=== PATIENT | female | born 1975 | race Caucasian/White ===

== ENCOUNTER 2016-08-04 08:59 | Inpatient (IN) | payer SELFPAY ==
[~2016-08-04] VITALS: Ht 160 cm; Wt 87.1 kg
--- NOTE | 2016-08-04 09:27 | RAD ---
Portable chest, 08/04/2016: History: Cough, shortness of breath The heart size and pulmonary vascularity are normal. No pulmonary infiltrates are seen. There is no evidence of pleural fluid. IMPRESSION: No acute cardiopulmonary abnormality is detected.
[2016-08-04] MEDS ORDERED: IPRATRPIUM/ALBUTEROL 0.5/2.5MG 3 ML NEBU. NEB ONE ×2 (09:45→14:45)
[2016-08-04] MEDS ORDERED: DEXAMETHASONE SOD PHOS 20 MG/5 ML VIAL. IV ONE (09:45)
[2016-08-04 10:11] LABS: BASO # 0.1 x10^3/uL (0.0-0.2); BASO % 1 % (0-3); EOS % 3 % (0-3); HEMATOCRIT 39.4 % (36.0-47.0); HEMOGLOBIN 13.4 g/dL (12.0-15.5); LYMPH # 2.9 x10^3/uL (1.0-4.8); LYMPH % 23 % (24-48); MEAN CORPUSCULAR HEMOGLOBIN 28 pg (25-35); MEAN CORPUSCULAR HGB CONC 34 g/dL (31-37); MEAN CORPUSCULAR VOLUME 83 fL (79-100); MONO % 5 % (0-9); NEUT % 69 % (31-73); PLATELET COUNT 200 x10^3/uL (140-400); RED BLOOD COUNT 4.75 x10^6/uL (3.50-5.40); RED CELL DISTRIBUTION WIDTH 13.7 % (11.5-14.5)
[2016-08-04 10:14] LABS: CALCIUM 9.2 mg/dL (8.5-10.1); GFR 61.4; POTASSIUM 3.2 mmol/L (3.5-5.1)
[2016-08-04 10:15] LABS: MAGNESIUM 1.5 mg/dL (1.8-2.4)
[2016-08-04 10:21] LABS: INR 1.1 (0.8-1.1); PROTHROMBIN TIME PATIENT 13.4 SEC (11.7-14.0)
[2016-08-04 10:30] LABS: BILIRUBIN,URINE NEGATIVE (NEG); GLUCOSE,URINE 100 mg/dL (NEG); NITRITE,URINE NEGATIVE (NEG); PROTEIN,URINE 30 mg/dL (NEG-TRACE); UROBILINOGEN,URINE 0.2 mg/dL (0.2 mg/dL)
[2016-08-04] MEDS ORDERED: IV NORMAL SALINE 1000ML BAG 1,000 ML IV ONE ×2 (10:30→16:15)
[2016-08-04 10:31] LABS: BACTERIA,URINE FEW /HPF (0-FEW); SQUAMOUS EPITHELIAL CELL,UR FEW /LPF; WBC,URINE 0 /HPF (0-4)
[2016-08-04 10:32] LABS: BARBITURATES NEG (NEG); BENZODIAZEPINES NEG (NEG); CANNABINOIDS NEG (NEG); COCAINE NEG (NEG); METHADONE NEG (NEG); OPIATES POS (NEG); PHENCYCLIDINE NEG (NEG)
[2016-08-04 10:40] LABS: CKMB MASS 0.8 ng/mL (0.0-3.6); CREATINE KINASE 55 U/L (26-192)
[2016-08-04] MEDS ORDERED: NICOTINE 21MG PATCH. TD STA (10:45)
[2016-08-04] MEDS ORDERED: ALPRAZolam 0.5 MG TABLET PO ONE (10:45)
[2016-08-04] MEDS ORDERED: IOHEXOL 300 MG/ML 75 ML VIAL IV ONE (11:30)
--- NOTE | 2016-08-04 12:53 | PHYS DOC ---
Past Medical History Past Medical History: Pneumonia Past Surgical History: Tubal ligation Alcohol Use: None Drug Use: None Adult General Chief Complaint Chief Complaint: SHORTNESS OF BREATH HPI HPI Patient is a 41 year old female with history of smoking who presents today with shortness of breath and coughing that began a week ago. Patient states she was seen at [facility] one week ago. She states she was diagnosed with bilateral lower lobe pneumonia and was treated with azithromycin. Patient states she completed antibiotics. She states she still have shortness of breath. Patient denies any fever. She tried using her inhaler with no relief. Review of Systems Review of Systems Constitutional: See history of present illness Eyes: Denies change in visual acuity, redness, or eye pain [] HENT: Denies nasal congestion or sore throat [] Respiratory: Cough and shortness of breath Cardiovascular: No additional information not addressed in HPI [] GI: Denies abdominal pain, nausea, vomiting, bloody stools or diarrhea [] : Denies dysuria or hematuria [] Musculoskeletal: Denies back pain or joint pain [] Integument: Denies rash or skin lesions [] Neurologic: Denies headache, focal weakness or sensory changes [] Endocrine: Denies polyuria or polydipsia [] Current Medications Current Medications Current Medications Medications (Trade) Dose Ordered Sig/Annabel Start Time Stop Time Status Last Admin Dose Admin Albuterol/ Ipratropium (Duoneb) 3 ml 1X ONCE 08/04/16 09:45 08/04/16 09:46 DC 08/04/16 09:40 3 ML Alprazolam (Xanax) 0.5 mg 1X ONCE 08/04/16 10:45 08/04/16 10:51 DC 08/04/16 10:55 0.5 MG Dexamethasone Sodium Phosphate 10 mg 10 mg 1X ONCE 08/04/16 09:45 08/04/16 09:46 DC 08/04/16 10:22 10 MG Iohexol 75 ml 75 ml 1X ONCE 08/04/16 11:30 08/04/16 11:31 DC 08/04/16 12:28 75 ML Levofloxacin/ Dextrose (LEVAQUIN 500mg PREMIX) 100 ml @ 100 mls/hr 1X ONCE 08/04/16 13:30 08/04/16 14:29 DC 08/04/16 14:17 100 MLS/HR Nicotine (Nicoderm Cq 21mg) 1 patch 1X STAT 08/04/16 10:45 08/04/16 10:51 DC 08/04/16 12:14 1 PATCH Sodium Chloride (Iv Sodium Chloride 0.9% 1000ml Bag) 1,000 ml @ 1,000 mls/hr 1X ONCE 08/04/16 10:30 08/04/16 11:29 DC 08/04/16 10:42 1,000 MLS/HR Allergies Allergies Allergies Coded Allergies Type Severity Reaction Last Updated Verified Penicillins Allergy Severe anaphylaxis 08/04/16 Yes Physical Exam Physical Exam Constitutional: Well developed, well nourished, no acute distress, non-toxic appearance. [] HENT: Normocephalic, atraumatic, bilateral external ears normal, oropharynx moist, no oral exudates, nose normal. [] Eyes: PERRLA, EOMI, conjunctiva normal, no discharge. [] Neck: Normal range of motion, no tenderness, supple, no stridor. [] Cardiovascular:Heart rate regular rhythm, no murmur [] Lungs & Thorax: Slight wheezing to posterior lung bases. Abdomen: Bowel sounds normal, soft, no tenderness, no masses, no pulsatile masses. [] Skin: Warm, dry, no erythema, no rash. [] Back: No tenderness, no CVA tenderness. [] Extremities: No tenderness, no cyanosis, no clubbing, ROM intact, no edema. [] Neurologic: Alert and oriented X 3, normal motor function, normal sensory function, no focal deficits noted. [] Psychologic: Affect normal, judgement normal, mood normal. [] Current Patient Data Vital Signs Vital Signs Date Time Temp Pulse Resp B/P Pulse Ox O2 Delivery O2 Flow Rate FiO2 08/04/16 09:40 98 Room Air 08/04/16 09:22 98.3 122 20 120/81 98.3 Lab Values Laboratory Tests Test 08/04/16 09:02 08/04/16 09:20 08/04/16 09:45 POC Urine HCG, Qualitative Hcg negative (Negative) Lactic Acid Level 3.1mmol/L (0.4-2.0) H White Blood Count 13.0x10^3/uL (4.0-11.0) H Red Blood Count 4.75x10^6/uL (3.50-5.40) Hemoglobin 13.4g/dL (12.0-15.5) Hematocrit 39.4% (36.0-47.0) Mean Corpuscular Volume 83fL (79-100) Mean Corpuscular Hemoglobin 28pg (25-35) Mean Corpuscular Hemoglobin Concent 34g/dL (31-37) Red Cell Distribution Width 13.7% (11.5-14.5) Platelet Count 200x10^3/uL (140-400) Neutrophils (%) (Auto) 69% (31-73) Lymphocytes (%) (Auto) 23% (24-48) L Monocytes (%) (Auto) 5% (0-9) Eosinophils (%) (Auto) 3% (0-3) Basophils (%) (Auto) 1% (0-3) Neutrophils # (Auto) 9.0x10^3uL (1.8-7.7) H Lymphocytes # (Auto) 2.9x10^3/uL (1.0-4.8) Monocytes # (Auto) 0.6x10^3/uL (0.0-1.1) Eosinophils # (Auto) 0.4x10^3/uL (0.0-0.7) Basophils # (Auto) 0.1x10^3/uL (0.0-0.2) Prothrombin Time 13.4SEC (11.7-14.0) Prothrombin Time INR 1.1 (0.8-1.1) D-Dimer (Shavon) 0.60ug/mlFEU (0.00-0.50) H Urine Collection Type Void Urine Color Yellow Urine Clarity Clear Urine pH 6.0 Urine Specific [place] 1.025 Urine Protein 30mg/dL (NEG-TRACE) Urine Glucose (UA) 100mg/dL (NEG) Urine Ketones (Stick) Negativemg/dL (NEG) Urine Blood Large (NEG) Urine Nitrite Negative (NEG) Urine Bilirubin Negative (NEG) Urine Urobilinogen Dipstick 0.2mg/dL (0.2 mg/dL) Urine Leukocyte Esterase Small (NEG) Urine RBC 1-2/HPF (0-2) Urine WBC 0/HPF (0-4) Urine Squamous Epithelial Cells Few/LPF Urine Bacteria Few/HPF (0-FEW) Urine Mucus Mod/LPF Sodium Level 134mmol/L (136-145) L Potassium Level 3.2mmol/L (3.5-5.1) L Chloride Level 98mmol/L (98-107) Carbon Dioxide Level 26mmol/L (21-32) Anion Gap 10 (6-14) Blood Urea Nitrogen 7mg/dL (7-20) Creatinine 1.0mg/dL (0.6-1.0) Estimated GFR (Cockcroft-Gault) 61.4 Glucose Level 257mg/dL (70-99) H Calcium Level 9.2mg/dL (8.5-10.1) Magnesium Level 1.5mg/dL (1.8-2.4) L Creatine Kinase 55U/L (26-192) Creatine Kinase MB (Mass) 0.8ng/mL (0.0-3.6) Creatine Kinase MB Relative Index % (0-4) Troponin I Quantitative < 0.017ng/mL (0.000-0.055) BC-Jkk-L-Type Natriuretic Peptide 35pg/mL (0-124) Thyroid Stimulating Hormone (TSH) 2.260uIU/mL (0.358-3.74) Urine Opiates Screen Pos (NEG) Urine Methadone Screen Neg (NEG) Urine Barbiturates Neg (NEG) Urine Phencyclidine Screen Neg (NEG) Urine Amphetamine/Methamphetamine Neg (NEG) Urine Benzodiazepines Screen Neg (NEG) Urine Cocaine Screen Neg (NEG) Urine Cannabinoids Screen Neg (NEG) Urine Ethyl Alcohol Neg (NEG) Laboratory Tests 08/04/16 09:45 Laboratory Tests 08/04/16 09:45 EKG EKG [] Radiology/Procedures Radiology/Procedures [] Course & Med Decision Making Course & Med Decision Making Pertinent Labs and Imaging studies reviewed. (See chart for details) Patient is in the ED with shortness of breath for one week. She was treated for pneumonia a week ago with azithromycin. She states her symptoms have not improved. Her chest x-ray is negative for any acute findings. Patient has be tachycardic with heart rates in the 120s, d-dimer was ordered which was 0.60. CT chest was done. CT chest is suspicious for bilateral upper lobe pneumonia. Blood glucose was 257 with no history of diabetes. Potassium was 3.2, lactic acid was 3.1 sodium is 134. She did get 1 L of IV fluid. Blood cultures were obtained. She was started on Levaquin. Dragon Disclaimer Dragon Disclaimer This electronic medical record was generated, in whole or in part, using a voice recognition dictation system. Departure Departure Impression: Primary Impression: CAP (community acquired pneumonia) Additional Impressions: Tachycardia Shortness of breath Hyperglycemia Disposition: ADMITTED INPATIENT Condition: STABLE Referrals: NO PCP (PCP) Problem Qualifiers SEVERO HAYES APRN August 04, 2016 12:52
--- NOTE | 2016-08-04 12:55 | RAD ---
Indication shortness of air. Axial images of the chest were obtained. The examination was tailored for the detection of pulmonary embolus. MIP images were generated and reviewed. 75 cc of Omnipaque 300 was administered intravenously. The study, evaluating for pulmonary embolus is somewhat limited. The image acquisition was" too late" and there is not optimal opacification of the pulmonary arteries. No prior CT imaging of the chest is available. No definite pulmonary emboli are seen and certainly large central pulmonary emboli are not present on this exam. Imaging through the upper abdomen shows no acute finding. There is fatty infiltration of the liver. The thoracic aorta appears unremarkable. Significant hilar or mediastinal adenopathy is not seen. There are perhaps minimal patchy infiltrates in the upper lobes. Clinical correlation as to the likelihood of pneumonia advised. A dominant soft tissue mass in either lung is not seen. IMPRESSION: Limited study evaluating for pulmonary embolus. No large central pulmonary emboli seen. Suggested subtle patchy infiltrates in the upper lobes. Pneumonia not excluded. Clinical correlation advised PQRS Compliance Statement: One or more of the following individualized dose reduction techniques were utilized for this examination: 1. Automated exposure control 2. Adjustment of the mA and/or kV according to patient size 3. Use of iterative reconstruction technique
--- NOTE | 2016-08-04 13:11 | EKG ---
[facility] [address] [place] [address] Test Date: 2016-08-04 Test Time: 09:44:05 Pat Name: LEX BACA Department: Room: Gender: F Senior Underwriter: : 1975 Requested By: SEVERO HAYES Order Number: [id number] Reading MD: Lawanda Higginbotham Measurements Intervals [place] Rate: 121 P: 53 IL: 136 QRS: 38 QRSD: 72 T: 29 QT: 322 QTc: 460 Interpretive Statements SINUS TACHYCARDIA OTHRTWISE NORMAL EKG RI6.01 No previous ECG available for comparison Electronically Signed On 08-04-2016 21:11:51 CDT by Lawanda Higginbotham
--- NOTE | 2016-08-04 14:44 | PDOC ---
Provider Note Provider Note dictated ROBINSON GUTIÉRREZ MD August 04, 2016 14:44
--- NOTE | 2016-08-04 15:25 | CONS ---
DATE OF CONSULTATION: ATTENDING PHYSICIAN: Dr. Salguero. REASON FOR CONSULTATION: Dyspnea, pneumonia. HISTORY OF PRESENT ILLNESS: The patient is a 41-year-old female, who has been a smoker since 20 years. She was seen at [facility] on last Thursday and she states that chest x-ray showed that she had pneumonia. She was given antibiotics. The patient states that she had finished a course of Zithromax. She said she still has some shortness of breath. No chest pains. She has a mild cough. No fever or chills. No nausea, vomiting or diarrhea. Her chest x-ray was clear. She had a CT chest, which was reviewed by me and I did not see any major central pulmonary emboli. There was a very faint if any infiltrates seen in the upper lobe. She is hospitalized for further evaluation. PAST MEDICAL HISTORY: Significant for pneumonia. PAST SURGICAL HISTORY: Tubal ligation. ALLERGIES: PENICILLIN. MEDICATIONS: Given in the ER with Levaquin. REVIEW OF SYSTEMS: As discussed in my history of present illness. SOCIAL HISTORY: Ongoing tobaccoism for 20 years. PHYSICAL EXAMINATION: VITAL SIGNS: Stable, afebrile, pulse ox 98% on room air. NECK: Supple. LUNGS: Clear. CARDIOVASCULAR: Regular rate. ABDOMEN: Soft, obese. EXTREMITIES: With no pitting edema. LABORATORY DATA: Reviewed. White cell count 13.0 and potassium 3.2. IMPRESSION: 1. Dyspnea secondary to mild exacerbation of chronic obstructive pulmonary disease and mild residual pneumonia. Apparently, her chest x-ray at [facility] a week ago had bilateral infiltrates and now radiographically on a chest x-ray we cannot see them. Only very minimal and faint infiltrates seen in the upper lobe. Clinically, 24 hours of hospital stay would be reasonable. 2. Ongoing tobaccoism. RECOMMENDATIONS: 1. Continue with Levaquin. 2. Nebulizer treatments. 3. Hopefully, discharge in the next 24 hours. 4. Smoking cessation counseling provided. 5. will as needed ROBINSON GUTIÉRREZ MD DR: THELMA/miguel JOB#: [id number] / [id number] RAYMUNDO
[2016-08-04] MEDS ORDERED: ACETAMINOPHEN 325 MG TABLET. PO PRN (16:00)
[2016-08-04] MEDS ORDERED: ONDANSETRON PF 4 MG/2 ML VIAL. IV PRN (16:00)
[2016-08-04] MEDS: IPRATRPIUM/ALBUTEROL 0.5/2.5MG 3 ML NEBU. NEB SCH (17:40)
[2016-08-04] MEDS ORDERED: HYDR-2672 PO (18:07)
[2016-08-04] MEDS ORDERED: IBUP-1060 PO (18:07)
--- NOTE | 2016-08-04 18:12 | HP ---
ADMIT DATE: 08/04/2016 CHIEF COMPLAINT: Shortness of breath, cough. HISTORY OF PRESENT ILLNESS: The patient is a pleasant 41-year-old female presents with shortness breath and cough. She has been having symptoms for a few days. It is worse with movement, better with sitting still. She has associated anxiety. Chest x-ray showing pneumonia. She also does smoke too much. I discussed the case with her and her family. I explained that she is going to be admitted for pneumonia. I requested that she please quit smoking. The patient has been admitted to the telemetry floor. PAST MEDICAL HISTORY: Tobacco abuse, previous pneumonia. ALLERGIES: None. FAMILY HISTORY: Hypertension. SOCIAL HISTORY: She smokes. She works at [employer]. She does not drink or take drugs. MEDICATIONS: Reviewed, please refer to the MRAD. REVIEW OF SYSTEMS: GENERAL: No history of weight change, weakness or fevers. SKIN: No bruising, hair changes or rashes. EYES: No blurred, double or loss of vision. NOSE AND THROAT: No history of nosebleeds, hoarseness or sore throat. HEART: No history of palpitations, chest pain or shortness of breath on exertion. LUNGS: She complains of congestion, shortness of breath and cough. GASTROINTESTINAL: Denies changes in appetite, nausea, vomiting, diarrhea or constipation. GENITOURINARY: No history of frequency, urgency, hesitancy or nocturia. NEUROLOGIC: Denies history of numbness, tingling, tremor or weakness. PSYCHIATRIC: No history of panic, anxiety or depression. ENDOCRINE: No history of heat or cold intolerance, polyuria or polydipsia. EXTREMITIES: Denies muscle weakness, joint pain, pain on walking or stiffness. PHYSICAL EXAMINATION: VITAL SIGNS: Temperature afebrile, pulse 68, respirations 18, blood pressure 144/92. GENERAL: She is alert, cooperative. HEART: Normal S1, S2. LUNGS: Right-sided crackles. ABDOMEN: Soft, positive bowel sounds. EXTREMITIES: No edema. SKIN: She does have a malar rash on her face what appears to perhaps be rosacea versus perhaps a lupus, but this has been occurring for several years. ASSESSMENT AND PLAN: Pneumonia. The patient has been admitted. We will start IV antibiotics, breathing treatments, oxygen, consider steroids if Pulmonary agrees, consult Pulmonary. Continue home medicines, PT, OT, frequent labs. NIAL Miryam HOWELL DO DR: EDA/miguel JOB#: [id number] / [id number]
[2016-08-04 19:00] VITALS: BP 110/72
[2016-08-04] MEDS: MORPHINE SULFATE 2 MG/ML DISP.SYRIN. IV PRN (20:16)
[2016-08-04] MEDS ORDERED: PNEUMOC CONJ VACC 23-VALENT 0.5 ML VIAL. VAX IM ONE (21:00)
[2016-08-04 23:00] VITALS: BP 110/72
[2016-08-05 03:00] VITALS: BP 99/69
[2016-08-05] MEDS: MORPHINE SULFATE 2 MG/ML DISP.SYRIN. IV PRN (03:30)
[2016-08-05 05:08] LABS: BASO # 0.1 x10^3/uL (0.0-0.2); BASO % 0 % (0-3); EOS % 0 % (0-3); HEMATOCRIT 36.9 % (36.0-47.0); HEMOGLOBIN 12.1 g/dL (12.0-15.5); LYMPH # 1.6 x10^3/uL (1.0-4.8); LYMPH % 15 % (24-48); MEAN CORPUSCULAR HEMOGLOBIN 28 pg (25-35); MEAN CORPUSCULAR HGB CONC 33 g/dL (31-37); MEAN CORPUSCULAR VOLUME 85 fL (79-100); MONO % 5 % (0-9); NEUT % 80 % (31-73); PLATELET COUNT 177 x10^3/uL (140-400); RED BLOOD COUNT 4.32 x10^6/uL (3.50-5.40); WHITE BLOOD COUNT 11.4 x10^3/uL (4.0-11.0)
[2016-08-05 05:33] LABS: CREATININE 0.8 mg/dL (0.6-1.0); GFR 79.4; POTASSIUM 3.9 mmol/L (3.5-5.1)
--- NOTE | 2016-08-05 06:40 | ACF ---
Admission Forms Criteria PNEUMONIA, COMMUNITY ACQUIRED Clinical Indications for Admission to Inpatient Care ( Place 'X' for any and all applicable criteria): Admission is indicated for ANY ONE of the following (1)(2)(3): [X]I. Hypoxemia indicated by ANY ONE of the following: [ ]a) Oxygen saturation less than 90% while breathing room air [ ]b) PO2 less than 60 mm Hg (8.0 kPa) while breathing room air [ ]c) Chronic lung disease with significant deterioration from baseline oxygenation [X]II. Appropriate diagnostic testing and treatment unavailable in outpatient or recovery facility (eg,testing or infection control measures unavailable(10) [ ]III. Moderate-risk or high-risk category patients (Pneumonia Severity Index (PSI) class IV or V, or CURB-65 score of 3 or greater). [ ]IV. Outpatient treatment failure as indicated by ANY ONE of the following(9) : [ ]a) Failure to respond to antibiotic (eg, resistant organism) [ ]b) Clinically significant adverse effects from medication (eg, vomiting) [ ]c) Complications of pneumonia (eg, empyema, bacteremia) [ ]d) Significant worsening of comorbid cond necessitating inpatient care (eg, chronic heart failure) [ ]V. Intermediate-risk category patients (eg, PSI class III or CURB-65 score 2) who do not improve with initial therapy and observation. [ ]. Immunocompromised patients (eg, AIDS, chronic steroid use) at moderate or high risk based on clinical evaluation. [ ]VII. Complicated pleural effusions (eg, exudative, loculated) [ ]VIII.Hemodynamic instability [ ] IX. Altered mental status that is severe or persistent. [ ]X. Dehydration that is severe or persistent. [ ]XI. Bacteremia [ ]XII. Respiratory finding (eg. tachypnea) that do not respond to outpatient or observation care treatment Extended stay beyond goal length of stay may be needed for (20) [ ]a) Unclear diagnosis [ ]b) Pleural disease [ ]c) Severe pneumonia or treatment failure (25 [ ]d) Respiratory failure (anticipate invasive or noninvasive ventilatory support) [ ]e) Abnormal serum electrolytes (serum Na concentration less than 135 mEq/L (mmol/L) (32)(33) [ ]f) Clinically significant comorbid illness (eg, heart failure, atrial fibrillation with rapid heart rate, alcohol withdrawal, renal insufficiency)(34)(35) [ ]g) Comorbid acute exacerbation of COPD(36) [ ]h) Concomitant diagnosis of malignancy that may be associated with malnutrition, immunologic impairment, or bronchial obstruction. [ ]i) Concomitant altered mental status [ ]j) Culture-identified Gram-negative or antibiotic-resistant organism (eg, Pseudomonas, methicillin-resistant Staphylococcus aureus)(30) [ ]k) Healthcare-associated pneumonia The original [employer] content created by [employer] has been revised. The portions of the content which have been revised are identified through the use of italic text or in bold, and [facility] has neither reviewed nor approved the modified material. All other unmodified content is copyright [employer]. Please see references footnoted in the original [employer] edition 2016 Admission Criteria Met?: Yes JENELLE GARRETT August 05, 2016 06:40
[2016-08-05 07:00] VITALS: BP 104/62
[2016-08-05] MEDS: IPRATRPIUM/ALBUTEROL 0.5/2.5MG 3 ML NEBU. NEB SCH ×3 (07:47→15:18)
[2016-08-05] MEDS: NICOTINE 21MG PATCH. TD SCH ×2 (08:41→09:00)
[2016-08-05] MEDS: HYDROcodone/APAP 10/325 1 TAB TABLET PO PRN ×3 (08:42→19:49)
[2016-08-05] MEDS ORDERED: PNEUMOCOCCAL VAX SCREEN BY RX. MC ONE (09:00)
--- NOTE | 2016-08-05 10:21 | PDOC ---
PROGRESS NOTES Chief Complaint Chief Complaint cc: sob/ cough A/P Acute respiratory distress, possible COPD exacerbation Pneumonia less likely Obesity Nicotine use for > 20 years Hyperglycemia Plan echo iv solumedrol tid periodic nebulizations Levaquin cardiology consult SSI Not ready for DC today hemoglobin A1C pending nicotine patch supportive care. CTA chest no PE. History of Present Illness History of Present Illness SOB TACHY NO FEVER NO CHILLS COMPLETED ZITHROMAX REGIMEN Vitals Vitals Vital Signs Date Time Temp Pulse Resp B/P Pulse Ox O2 Delivery O2 Flow Rate FiO2 08/05/16 08:42 Room Air 08/05/16 07:45 98 08/05/16 07:00 97.5 99 20 104/62 97.5 Physical Exam General: Alert, Cooperative Heart: Normal S1, Normal S2 Lungs: Other (DECREAED BS) Abdomen: Normal bowel sounds, Soft Labs LABS Laboratory Tests Test 08/04/16 17:10 08/04/16 21:50 08/05/16 04:50 Lactic Acid Level 5.0mmol/L (0.4-2.0) 4.5mmol/L (0.4-2.0) 3.9mmol/L (0.4-2.0) White Blood Count 11.4x10^3/uL (4.0-11.0) Red Blood Count 4.32x10^6/uL (3.50-5.40) Hemoglobin 12.1g/dL (12.0-15.5) Hematocrit 36.9% (36.0-47.0) Mean Corpuscular Volume 85fL (79-100) Mean Corpuscular Hemoglobin 28pg (25-35) Mean Corpuscular Hemoglobin Concent 33g/dL (31-37) Red Cell Distribution Width 14.0% (11.5-14.5) Platelet Count 177x10^3/uL (140-400) Neutrophils (%) (Auto) 80% (31-73) Lymphocytes (%) (Auto) 15% (24-48) Monocytes (%) (Auto) 5% (0-9) Eosinophils (%) (Auto) 0% (0-3) Basophils (%) (Auto) 0% (0-3) Neutrophils # (Auto) 9.1x10^3uL (1.8-7.7) Lymphocytes # (Auto) 1.6x10^3/uL (1.0-4.8) Monocytes # (Auto) 0.6x10^3/uL (0.0-1.1) Eosinophils # (Auto) 0.0x10^3/uL (0.0-0.7) Basophils # (Auto) 0.1x10^3/uL (0.0-0.2) Sodium Level 133mmol/L (136-145) Potassium Level 3.9mmol/L (3.5-5.1) Chloride Level 100mmol/L (98-107) Carbon Dioxide Level 21mmol/L (21-32) Anion Gap 12 (6-14) Blood Urea Nitrogen 8mg/dL (7-20) Creatinine 0.8mg/dL (0.6-1.0) Estimated GFR (Cockcroft-Gault) 79.4 Glucose Level 298mg/dL (70-99) Calcium Level 9.0mg/dL (8.5-10.1) Assessment and Plan Assessmemt and Plan Problems Medical Problems: (1) CAP (community acquired pneumonia) Status: Acute (2) Hyperglycemia Status: Acute (3) Shortness of breath Status: Acute (4) Tachycardia Status: Acute Problems: Comment Review of Relevant I have reviewed the following items alexis (where applicable) has been applied. Labs Laboratory Tests Test 08/04/16 09:02 08/04/16 09:20 08/04/16 09:45 08/04/16 17:10 Bedside Urine HCG, Qualitative Hcg negative (Negative) Lactic Acid Level 3.1mmol/L (0.4-2.0) 5.0mmol/L (0.4-2.0) White Blood Count 13.0x10^3/uL (4.0-11.0) Red Blood Count 4.75x10^6/uL (3.50-5.40) Hemoglobin 13.4g/dL (12.0-15.5) Hematocrit 39.4% (36.0-47.0) Mean Corpuscular Volume 83fL (79-100) Mean Corpuscular Hemoglobin 28pg (25-35) Mean Corpuscular Hemoglobin Concent 34g/dL (31-37) Red Cell Distribution Width 13.7% (11.5-14.5) Platelet Count 200x10^3/uL (140-400) Neutrophils (%) (Auto) 69% (31-73) Lymphocytes (%) (Auto) 23% (24-48) Monocytes (%) (Auto) 5% (0-9) Eosinophils (%) (Auto) 3% (0-3) Basophils (%) (Auto) 1% (0-3) Neutrophils # (Auto) 9.0x10^3uL (1.8-7.7) Lymphocytes # (Auto) 2.9x10^3/uL (1.0-4.8) Monocytes # (Auto) 0.6x10^3/uL (0.0-1.1) Eosinophils # (Auto) 0.4x10^3/uL (0.0-0.7) Basophils # (Auto) 0.1x10^3/uL (0.0-0.2) Prothrombin Time 13.4SEC (11.7-14.0) Prothromb Time International Ratio 1.1 (0.8-1.1) D-Dimer (Shavon) 0.60ug/mlFEU (0.00-0.50) Urine Collection Type Void Urine Color Yellow Urine Clarity Clear Urine pH 6.0 Urine Specific Roland 1.025 Urine Protein 30mg/dL (NEG-TRACE) Urine Glucose (UA) 100mg/dL (NEG) Urine Ketones (Stick) Negativemg/dL (NEG) Urine Blood Large (NEG) Urine Nitrite Negative (NEG) Urine Bilirubin Negative (NEG) Urine Urobilinogen Dipstick 0.2mg/dL (0.2 mg/dL) Urine Leukocyte Esterase Small (NEG) Urine RBC 1-2/HPF (0-2) Urine WBC 0/HPF (0-4) Urine Squamous Epithelial Cells Few/LPF Urine Bacteria Few/HPF (0-FEW) Urine Mucus Mod/LPF Sodium Level 134mmol/L (136-145) Potassium Level 3.2mmol/L (3.5-5.1) Chloride Level 98mmol/L (98-107) Carbon Dioxide Level 26mmol/L (21-32) Anion Gap 10 (6-14) Blood Urea Nitrogen 7mg/dL (7-20) Creatinine 1.0mg/dL (0.6-1.0) Estimated GFR (Cockcroft-Gault) 61.4 Glucose Level 257mg/dL (70-99) Calcium Level 9.2mg/dL (8.5-10.1) Magnesium Level 1.5mg/dL (1.8-2.4) Creatine Kinase 55U/L (26-192) Creatine Kinase MB (Mass) 0.8ng/mL (0.0-3.6) Creatine Kinase MB Relative Index % (0-4) Troponin I Quantitative < 0.017ng/mL (0.000-0.055) VQ-Kgz-U-Type Natriuretic Peptide 35pg/mL (0-124) Thyroid Stimulating Hormone (TSH) 2.260uIU/mL (0.358-3.74) Urine Opiates Screen Pos (NEG) Urine Methadone Screen Neg (NEG) Urine Barbiturates Neg (NEG) Urine Phencyclidine Screen Neg (NEG) Urine Amphetamine/Methamphetamine Neg (NEG) Urine Benzodiazepines Screen Neg (NEG) Urine Cocaine Screen Neg (NEG) Urine Cannabinoids Screen Neg (NEG) Urine Ethyl Alcohol Neg (NEG) Test 08/04/16 21:50 08/05/16 04:50 Lactic Acid Level 4.5mmol/L (0.4-2.0) 3.9mmol/L (0.4-2.0) White Blood Count 11.4x10^3/uL (4.0-11.0) Red Blood Count 4.32x10^6/uL (3.50-5.40) Hemoglobin 12.1g/dL (12.0-15.5) Hematocrit 36.9% (36.0-47.0) Mean Corpuscular Volume 85fL (79-100) Mean Corpuscular Hemoglobin 28pg (25-35) Mean Corpuscular Hemoglobin Concent 33g/dL (31-37) Red Cell Distribution Width 14.0% (11.5-14.5) Platelet Count 177x10^3/uL (140-400) Neutrophils (%) (Auto) 80% (31-73) Lymphocytes (%) (Auto) 15% (24-48) Monocytes (%) (Auto) 5% (0-9) Eosinophils (%) (Auto) 0% (0-3) Basophils (%) (Auto) 0% (0-3) Neutrophils # (Auto) 9.1x10^3uL (1.8-7.7) Lymphocytes # (Auto) 1.6x10^3/uL (1.0-4.8) Monocytes # (Auto) 0.6x10^3/uL (0.0-1.1) Eosinophils # (Auto) 0.0x10^3/uL (0.0-0.7) Basophils # (Auto) 0.1x10^3/uL (0.0-0.2) Sodium Level 133mmol/L (136-145) Potassium Level 3.9mmol/L (3.5-5.1) Chloride Level 100mmol/L (98-107) Carbon Dioxide Level 21mmol/L (21-32) Anion Gap 12 (6-14) Blood Urea Nitrogen 8mg/dL (7-20) Creatinine 0.8mg/dL (0.6-1.0) Estimated GFR (Cockcroft-Gault) 79.4 Glucose Level 298mg/dL (70-99) Calcium Level 9.0mg/dL (8.5-10.1) Laboratory Tests Test 08/04/16 17:10 08/04/16 21:50 08/05/16 04:50 Lactic Acid Level 5.0mmol/L (0.4-2.0) 4.5mmol/L (0.4-2.0) 3.9mmol/L (0.4-2.0) White Blood Count 11.4x10^3/uL (4.0-11.0) Red Blood Count 4.32x10^6/uL (3.50-5.40) Hemoglobin 12.1g/dL (12.0-15.5) Hematocrit 36.9% (36.0-47.0) Mean Corpuscular Volume 85fL (79-100) Mean Corpuscular Hemoglobin 28pg (25-35) Mean Corpuscular Hemoglobin Concent 33g/dL (31-37) Red Cell Distribution Width 14.0% (11.5-14.5) Platelet Count 177x10^3/uL (140-400) Neutrophils (%) (Auto) 80% (31-73) Lymphocytes (%) (Auto) 15% (24-48) Monocytes (%) (Auto) 5% (0-9) Eosinophils (%) (Auto) 0% (0-3) Basophils (%) (Auto) 0% (0-3) Neutrophils # (Auto) 9.1x10^3uL (1.8-7.7) Lymphocytes # (Auto) 1.6x10^3/uL (1.0-4.8) Monocytes # (Auto) 0.6x10^3/uL (0.0-1.1) Eosinophils # (Auto) 0.0x10^3/uL (0.0-0.7) Basophils # (Auto) 0.1x10^3/uL (0.0-0.2) Sodium Level 133mmol/L (136-145) Potassium Level 3.9mmol/L (3.5-5.1) Chloride Level 100mmol/L (98-107) Carbon Dioxide Level 21mmol/L (21-32) Anion Gap 12 (6-14) Blood Urea Nitrogen 8mg/dL (7-20) Creatinine 0.8mg/dL (0.6-1.0) Estimated GFR (Cockcroft-Gault) 79.4 Glucose Level 298mg/dL (70-99) Calcium Level 9.0mg/dL (8.5-10.1) Medications Current Medications Albuterol/ Ipratropium (Duoneb) 3 ml 1X ONCE NEB Last administered on 09:40; Start 08/04/16 at 09:45; Stop 08/04/16 at 09:46; Status DC Dexamethasone Sodium Phosphate 10 mg 10 mg 1X ONCE IV Last administered on 08/04 10:22; Start 08/04/16 at 09:45; Stop 08/04/16 at 09:46; Status DC Sodium Chloride (Iv Sodium Chloride 0.9% 1000ml Bag) 1,000 ml @ 1,000 mls/hr 1X ONCE IV Last administered on 08/04/16 10:42; Start 08/04/16 at 10:30; Stop 08/04/16 at 11:29; Status DC Alprazolam (Xanax) 0.5 mg 1X ONCE PO Last administered on 08/04/16 10:55; Start 08/04/16 at 10:45; Stop 08/04/16 at 10:51; Status DC Nicotine (Nicoderm Cq 21mg) 1 patch 1X STAT TD Last administered on 08/04/16 12:14; Start 08/04/16 at 10:45; Stop 08/04/16 at 10:51; Status DC Iohexol 75 ml 75 ml 1X ONCE IV Last administered on 08/04/16 12:28; Start 08/04 at 11:30; Stop 08/04/16 at 11:31; Status DC Levofloxacin/ Dextrose (LEVAQUIN 500mg PREMIX) 100 ml @ 100 mls/hr 1X ONCE IV Last administered on 08/04/16 14:17; Start 08/04/16 at 13:30; Stop 08/04/16 at 14:29; Status DC Albuterol/ Ipratropium (Duoneb) 3 ml 1X ONCE NEB Last administered on 20:11; Start 08/04/16 at 14:45; Stop 08/04/16 at 14:46; Status DC Ondansetron HCl (Zofran) 4 mg PRN Q8HRS PRN IV NAUSEA/VOMITING; Start 08/04/16 at 16:00; Stop 08/05/16 at 15:59 Morphine Sulfate 2 mg PRN Q2HR PRN IV PAIN Last administered on 08/05/16 03:30 ; Start 08/04/16 at 16:00; Stop 08/05/16 at 15:59 Acetaminophen (Tylenol) 650 mg PRN Q4HRS PRN PO FEVER; Start 08/04/16 at 16:00; Stop 08/05/16 at 15:59 Albuterol/ Ipratropium 3 ml 3 ml RTQID NEB Last administered on 08/05/16 07:47 ; Start 08/04/16 at 16:00; Stop 08/05/16 at 15:59 Levofloxacin/ Dextrose 100 ml @ 100 mls/hr Q24H IV ; Start 08/04/16 at 17:00; Stop 08/04/16 at 17:00; Status DC Sodium Chloride 1,000 ml @ 125 mls/hr 1X ONCE IV Last administered on 17:58; Start 08/04/16 at 16:15; Stop 08/05/16 at 00:14; Status DC Levofloxacin/ Dextrose (LEVAQUIN 500mg PREMIX) 100 ml @ 100 mls/hr Q24H IV ; Start 08/05/16 at 14:00 Acetaminophen/ Hydrocodone Bitart (Lortab 10/325) 1 tab PRN Q4HRS PRN PO PAIN Last administered on 08/05/16 08:42; Start 08/04/16 at 19:30 Pneumococcal Polyvalent Vaccine (Do NOT chart on this placeholder) 1 each 1X ONCE MC ; Start 08/05/16 at 09:00; Stop 08/05/16 at 09:01; Status UNV Pneumococcal Polyvalent Vaccine (Pneumovax 23) 0.5 ml ONCE ONCE VAX IM ; Start 08/04/16 at 21:00; Stop 08/04/16 at 21:01; Status DC Nicotine (Nicoderm Cq 21mg) 1 patch DAILY TD ; Start 08/05/16 at 20:30; Stop 08/05 at 20:30; Status DC Nicotine (Nicoderm Cq 21mg) 1 patch DAILY TD Last administered on 08/05/16 08: 41; Start 08/05/16 at 08:45 Active Scripts Active Reported Ibuprofen 800 Mg Tablet 800 Mg PO PRN Q6HRS PRN Hydrocodone-Apap 10-325 (Hydrocodone Bit/Acetaminophen) 1 Each Tablet 1 Tab PO PRN Q4-6HRS PRN Vitals/I & O Vital Sign - Last 24 Hours 08/04/16 08/04/16 08/04/16 08/04/16 17:40 18:19 19:00 20:00 Temp 97.8 97.8 Pulse 113 Resp 20 B/P 110/72 Pulse Ox 98 96 O2 Delivery Room Air Room Air Room Air Room Air 08/04/16 08/04/16 08/04/16 08/05/16 20:11 20:16 23:00 03:00 Temp 98.2 98.2 98.2 98.2 Pulse 111 96 Resp 20 20 B/P 110/72 99/69 Pulse Ox 99 99 98 98 O2 Delivery Room Air Room Air Room Air Room Air 08/05/16 08/05/16 08/05/16 08/05/16 03:30 04:00 07:00 07:45 Temp 97.5 97.5 Pulse 99 Resp 20 B/P 104/62 Pulse Ox 98 98 98 98 O2 Delivery Room Air Room Air Room Air Room Air 08/05/16 08:42 O2 Delivery Room Air Intake and Output 08/04/16 08/04/16 08/05/16 15:00 23:00 07:00 Intake Total 1000 ml 840 ml 1500 ml Balance 1000 ml 840 ml 1500 ml LAYO POLLOCK MD August 05, 2016 10:21
[2016-08-05] MEDS ORDERED: DEXTROSE 50% 25 GM / 50ML DISP.SYRIN. IV PRN (10:30)
[2016-08-05 10:55] VITALS: BP 108/70
--- NOTE | 2016-08-05 12:30 | PDOC2 ---
ABEL PEREA MANGLE OPERATOR GARMENTS 08/05/16 1230: CARDIAC CONSULT DATE OF CONSULT Date of Consult DATE: 08/05/16 TIME: 12:29 REASON FOR CONSULT Reason for Consult: tachycardia REFERRING PHYSICIAN Referring Physician: Dr. Cain Sosa SOURCE Source: Chart review, Patient HISTORY OF PRESENT ILLNESS HISTORY OF PRESENT ILLNESS 41 year old female diagnosed with acute pneumonia > 1 week ago @ [facility] and treated with oral antibiotics. Admitted through ER yesterday with same diagnosis. Initial lactic acid normal then harmeet to 5.0. D-Dimer elevated with CTa chest negative for pulmonary embolus, however, suggestive of infiltrates in the upper lobes. Currently treated with antibiotics and IV steroids. EKG with ST and no acute changes. Reason for Visit: tachycardia PAST MEDICAL HISTORY Cardiovascular: No pertinent hx Pulmonary: Pneumonia CENTRAL NERVOUS SYSTEM: Other (denies) GI: No pertinent hx Heme/Onc: No pertinent hx Hepatobiliary: No pertinent hx Psych: No pertinent hx Musculoskeletal: Other (sciatica) Rheumatologic: No pertinent hx Infectious disease: No pertinent hx ENT: No pertinent hx Renal/: No pertinent hx Endocrine: No pertinent hx Dermatology: No pertinent hx PAST SURGICAL HISTORY Past Surgical History: Tubal Ligation FAMILY HISTORY Family History: Heart Disease, Stroke SOCIAL HISTORY Smoke: 1 pack per day (X 25 years) ALCOHOL: none Drugs: None Lives: with Family CURRENT MEDICATIONS CURRENT MEDICATIONS Current Medications Medications (Trade) Dose Ordered Sig/Annabel Route PRN Reason Start Time Stop Time Status Last Admin Dose Admin Levofloxacin/ Dextrose (LEVAQUIN 500mg PREMIX) 100 ml @ 100 mls/hr 1X ONCE IV 08/04/16 13:30 08/04/16 14:29 DC 08/04/16 14:17 Albuterol/ Ipratropium (Duoneb) 3 ml 1X ONCE NEB 08/04/16 14:45 08/04/16 14:46 DC 08/04/16 20:11 Morphine Sulfate 2 mg PRN Q2HR PRN IV PAIN 08/04/16 16:00 08/05/16 15:59 08/05/16 03:30 Albuterol/ Ipratropium 3 ml 3 ml RTQID NEB 08/04/16 16:00 08/05/16 15:59 08/05/16 12:10 Sodium Chloride (Iv Sodium Chloride 0.9% 1000ml Bag) 1,000 ml @ 125 mls/hr 1X ONCE IV 5/1/17 16:15 08/05/16 00:14 DC 08/04/16 17:58 Acetaminophen/ Hydrocodone Bitart (Lortab 10/325) 1 tab PRN Q4HRS PRN PO PAIN 08/04/16 19:30 08/05/16 08:42 Nicotine (Nicoderm Cq 21mg) 1 patch DAILY TD 08/05/16 08:45 08/05/16 08:41 ALLERGIES ALLERGIES: Coded Allergies: Penicillins (Verified Allergy, Severe, anaphylaxis, 08/04/16) ROS General: No: Appetite, Chills, Fatigue, Malaise, Night Sweats, Other PSYCHOLOGICAL ROS: No: Anxiety, Behavioral Disorder, Concentration difficultie , Decreased libido, Depression, Disorientation, Hallucinations, Hostility, Irritablity, Memory difficulties, Mood Swings, Obsessive thoughts, Other, Physical abuse, Sexual abuse, Sleep disturbances, Suicidal ideation Eyes: No Blurry vision, No Decreased vision, No Double vision, No Dry eyes, No Excessive tearing, No Eye Pain, No Itchy Eyes, No Loss of vision, No Other, No Photophobia, No Scotomata, No Uses contacts, No Uses glasses HEENT: No: Epistaxis, Heacaches, Hearing change, Nasal congestion, Nasal discharge, Oral lesions, Other, Sinus pain, Sneezing, Snoring, Sore Throat, Tinnitus, Vertigo, Visual Changes, Vocal changes ALLERGY AND IMMUNOLOGY: No: Hives, Insect Bite Sensitivity, Nasal Congestion, Other, Post Nasal Drip, Seasonal Allergies Hematological and Lymphatic: No: Bleeding Problems, Blood Clots, Blood Transfusions, Brusing, Night Sweats, Other, Pallor, Swollen Lymph Nodes ENDOCRINE: No: Breast Changes, Galactorrhea, Hair Pattern Changes, Hot Flashes , Malaise/lethargy, Mood Swings, Other, Palpitations, Polydipsia/polyuria, Skin Changes, Temperature Intolerance, Unexpected Weight Changes Respiratory: YES: Cough, SOB with excertion, Shortness of breath, No: Hemoptysis, Orthopnea, Other, Pleuritic Pain, Sputum Changes, Stridor, Tachypnea, Wheezing Cardiovascular: No Chest Pain, No Edema, No Lt Headedness, No Orthopnea, No Other, No Palpitations, No Paroxysmal Noc. Dyspnea Gastrointestinal: No Abdominal Pain, No Constipation, No Diarrhea, No Hematochezia, No Melena, No Nausea, No Other, No Vomiting Genitourinary: No Discharge, No Dysuria, No Flank Pain, No Frequency, No Hematuria, No Incontinence, No Other, No Pain, No Retention, No Urgency Musculoskeletal: No Gait Disturbance, No Joint Pain, No Joint Stiffness, No Joint Swelling, No Muscle Pain, No Muscular Weakness, No Other, No Pain In:, No Swelling In: Neurological: No Behavorial Changes, No Bowel/Bladder ControlChng, No Confusion , No Dizziness, No Gait Disturbance, No Headaches, No Impaired Coord/balance, No Memory Loss, No Numbness/Tingling, No Other, No Seizures, No Speech Problems , No Tremors, No Visual Changes, No Weakness Skin: No Acne, No Dry Skin, No Eczema, No Hair Changes, No Lumps, No Mole Changes, No Mottling, No Nail Changes, No Other, No Pruritus, No Rash, No Skin Lesion Changes PHYSICAL EXAM General: Alert, Oriented X3, Cooperative, No acute distress HEENT: Atraumatic, PERRLA Lungs: Clear to auscultation Heart: Regular rate, Normal S1, Normal S2, No murmurs Abdomen: No tenderness, Other (truncal obesity) Extremities: No edema, Normal pulses Skin: No rashes Neuro: Normal speech Psych/Mental Status: Mental status NL, Mood NL MUSCULOSKELETAL: No deformity VITALS VITALS Vital Signs Date Time Temp Pulse Resp B/P Pulse Ox O2 Delivery O2 Flow Rate FiO2 08/05/16 12:10 Room Air 08/05/16 10:55 96.4 105 20 108/70 98 96.4 LABS Lab: Laboratory Tests Test 08/04/16 17:10 08/04/16 21:50 08/05/16 04:50 08/05/16 11:06 Lactic Acid Level 5.0mmol/L (0.4-2.0) 4.5mmol/L (0.4-2.0) 3.9mmol/L (0.4-2.0) White Blood Count 11.4x10^3/uL (4.0-11.0) Red Blood Count 4.32x10^6/uL (3.50-5.40) Hemoglobin 12.1g/dL (12.0-15.5) Hematocrit 36.9% (36.0-47.0) Mean Corpuscular Volume 85fL (79-100) Mean Corpuscular Hemoglobin 28pg (25-35) Mean Corpuscular Hemoglobin Concent 33g/dL (31-37) Red Cell Distribution Width 14.0% (11.5-14.5) Platelet Count 177x10^3/uL (140-400) Neutrophils (%) (Auto) 80% (31-73) Lymphocytes (%) (Auto) 15% (24-48) Monocytes (%) (Auto) 5% (0-9) Eosinophils (%) (Auto) 0% (0-3) Basophils (%) (Auto) 0% (0-3) Neutrophils # (Auto) 9.1x10^3uL (1.8-7.7) Lymphocytes # (Auto) 1.6x10^3/uL (1.0-4.8) Monocytes # (Auto) 0.6x10^3/uL (0.0-1.1) Eosinophils # (Auto) 0.0x10^3/uL (0.0-0.7) Basophils # (Auto) 0.1x10^3/uL (0.0-0.2) Sodium Level 133mmol/L (136-145) Potassium Level 3.9mmol/L (3.5-5.1) Chloride Level 100mmol/L (98-107) Carbon Dioxide Level 21mmol/L (21-32) Anion Gap 12 (6-14) Blood Urea Nitrogen 8mg/dL (7-20) Creatinine 0.8mg/dL (0.6-1.0) Estimated GFR (Cockcroft-Gault) 79.4 Glucose Level 298mg/dL (70-99) Calcium Level 9.0mg/dL (8.5-10.1) Glucose (Fingerstick) 297mg/dL (70-99) IMAGES IMAGES CXR: no acute changes EKG EKG no acute changes ASSESSMENT/PLAN ASSESSMENT/PLAN 1. tachycardia rates < 125 compensatory in the setting of acute pneumonia, lactic acidosis, utilization of IV steroids and albuterol expect resolution with treatment of above no further evaluation required at this time 2. pneumonia per pulmonary 3. tobacco abuse cessation advised Will follow peripherally Please contact for further assistance Problems: VERO CASTAÑEDA MD 08/05/16 2227: CARDIAC CONSULT ALLERGIES ALLERGIES: Coded Allergies: Penicillins (Verified Allergy, Severe, anaphylaxis, 08/04/16) ASSESSMENT/PLAN ASSESSMENT/PLAN Pt. seen and examined. AGree with above ELECTRICAL ENGINEER note. 41 y.o woman presenting with resp issues. At baseline has no significant issues. Normal cardiac exam echo wnl Supportive care. pls call with questions. Problems: ABEL PEREA APRN August 05, 2016 12:30 VERO CASTAÑEDA MD August 05, 2016 22:27
[2016-08-05] MEDS: INSULIN ASPART 300 UNITS/3 ML INSULN.PEN SQ SCH ×2 (12:32→17:10)
[2016-08-05] MEDS: methylPREDNISolone SOD SUCC PF 40 MG/ML VIAL. IV SCH ×2 (13:22→21:26)
--- NOTE | 2016-08-05 14:58 | CARD ---
APPROVED REPORT EXAM: Two-dimensional and M-mode echocardiogram with Doppler and color Doppler. Other Information Quality : GoodHR: 110bpm Rhythm : Tachycardia INDICATION Severe shortness of breath RISK FACTORS Obesity Family History Smoking 2D DIMENSIONS RVDd3.0 (2.9-3.5cm)Left Atrium(2D)3.0 (1.6-4.0cm) IVSd0.7 (0.7-1.1cm)Aortic Root(2D)2.2 (2.0-3.7cm) LVDd4.1 (3.9-5.9cm)LVOT Diameter2.2 (1.8-2.4cm) PWd0.8 (0.7-1.1cm)LVDs2.7 (2.5-4.0cm) FS (%) 35.3 %SV49.4 ml LVEF(%)65.1 (>50%) Aortic Valve AoV Peak Joe.158.3cm/sAoV VTI25.6cm AO Peak GR.10.0mmHgLVOT Peak Joe.124.9cm/s AO Mean GR.5mmHgAVA (VMAX)2.93cm2 Mitral Valve MV E Kodzjcou53.6cm/sMV E Peak Gr.6mmHg MV DECEL [id number] A Jknrldkr25.3cm/s MV E Mean Gr.3mmHgE/A Ratio1.1 MV A [id number] Pulmonary Valve PV Peak Dhxsopxr911.9cm/s Pulmonary Vein S1 Pefexvcz68.5cm/sD2 Umdbiedc98.0cm/s PVa [id number] LEFT VENTRICLE The left ventricle is normal size. There is normal left ventricular wall thickness. The left ventricu lar systolic function is normal and the ejection fraction is within normal range. The Ejection Fracti on is 60-65%. There is normal LV segmental wall motion. The left ventricular diastolic function and f illing is normal for age. RIGHT VENTRICLE The right ventricle is normal size. There is normal right ventricular wall thickness. The right ventr icular systolic function is normal. ATRIA The left atrium size is normal. The right atrium size is normal. The interatrial septum is intact wit h no evidence for an atrial septal defect or patent foramen ovale as noted on 2-D or Doppler imaging. AORTIC VALVE The aortic valve is normal in structure and function. The aortic valve is trileaflet. Doppler and Col or Flow revealed no significant aortic regurgitation. There is no significant aortic valvular stenosi s. MITRAL VALVE The mitral valve is normal in structure and function. There is no evidence of mitral valve prolapse. There is no mitral valve stenosis. Doppler and Color Flow revealed no mitral valve regurgitation note d. TRICUSPID VALVE Doppler and Color Flow revealed no tricuspid valve regurgitation noted. There is no pulmonary hyperte nsion. PULMONIC VALVE Doppler and Color Flow revealed no pulmonic valvular regurgitation. There is no pulmonic valvular david nosis. GREAT VESSELS The aortic root is normal in size. The ascending aorta is normal in size. The pulmonary artery is nor mal. The IVC is normal in size and collapses >50% with inspiration. PERICARDIAL EFFUSION There is no evidence of significant pericardial effusion. Critical Notification Critical Value: No <Conclusion> The left ventricular systolic function is normal and the ejection fraction is within normal range. Th e Ejection Fraction is 60-65%. There is normal LV segmental wall motion.
[2016-08-05 15:00] VITALS: BP 110/69
[2016-08-05 19:00] VITALS: BP 112/57
[2016-08-05] MEDS ORDERED: NICOTINE 21MG PATCH. TD SCH (20:30)
[2016-08-05 23:00] VITALS: BP 98/51
[2016-08-06] MEDS: methylPREDNISolone SOD SUCC PF 40 MG/ML VIAL. IV SCH ×2 (06:11→14:00)
[2016-08-06] MEDS: HYDROcodone/APAP 10/325 1 TAB TABLET PO PRN ×2 (06:12→12:07)
[2016-08-06 07:00] VITALS: BP 100/59
[2016-08-06] MEDS: IPRATRPIUM/ALBUTEROL 0.5/2.5MG 3 ML NEBU. NEB SCH ×2 (07:11→12:59)
[2016-08-06] MEDS: NICOTINE 21MG PATCH. TD SCH (08:29)
[2016-08-06] MEDS: INSULIN ASPART 300 UNITS/3 ML INSULN.PEN SQ SCH ×2 (08:45→12:10)
--- NOTE | 2016-08-06 10:51 | PDOC ---
PULMONARY PROGRESS NOTES Subjective no soa Vitals Vital Signs Date Time Temp Pulse Resp B/P Pulse Ox O2 Delivery O2 Flow Rate FiO2 08/06/16 08:28 Room Air 08/06/16 07:11 98 08/06/16 07:00 97.8 98 22 100/59 97.8 General: Alert, No acute distress Lungs: Clear Cardiovascular: S1 Abdomen: Soft Neuro Exam: Alert Extremities: No Edema Skin: Warm Labs Laboratory Tests Test 08/04/16 17:10 08/04/16 21:50 08/05/16 04:50 08/05/16 11:06 Lactic Acid Level 5.0mmol/L (0.4-2.0) 4.5mmol/L (0.4-2.0) 3.9mmol/L (0.4-2.0) White Blood Count 11.4x10^3/uL (4.0-11.0) Red Blood Count 4.32x10^6/uL (3.50-5.40) Hemoglobin 12.1g/dL (12.0-15.5) Hematocrit 36.9% (36.0-47.0) Mean Corpuscular Volume 85fL (79-100) Mean Corpuscular Hemoglobin 28pg (25-35) Mean Corpuscular Hemoglobin Concent 33g/dL (31-37) Red Cell Distribution Width 14.0% (11.5-14.5) Platelet Count 177x10^3/uL (140-400) Neutrophils (%) (Auto) 80% (31-73) Lymphocytes (%) (Auto) 15% (24-48) Monocytes (%) (Auto) 5% (0-9) Eosinophils (%) (Auto) 0% (0-3) Basophils (%) (Auto) 0% (0-3) Neutrophils # (Auto) 9.1x10^3uL (1.8-7.7) Lymphocytes # (Auto) 1.6x10^3/uL (1.0-4.8) Monocytes # (Auto) 0.6x10^3/uL (0.0-1.1) Eosinophils # (Auto) 0.0x10^3/uL (0.0-0.7) Basophils # (Auto) 0.1x10^3/uL (0.0-0.2) Sodium Level 133mmol/L (136-145) Potassium Level 3.9mmol/L (3.5-5.1) Chloride Level 100mmol/L (98-107) Carbon Dioxide Level 21mmol/L (21-32) Anion Gap 12 (6-14) Blood Urea Nitrogen 8mg/dL (7-20) Creatinine 0.8mg/dL (0.6-1.0) Estimated GFR (Cockcroft-Gault) 79.4 Glucose Level 298mg/dL (70-99) Hemoglobin A1c 7.4% (4.8-5.6) Calcium Level 9.0mg/dL (8.5-10.1) Glucose (Fingerstick) 297mg/dL (70-99) Test 08/05/16 11:45 08/05/16 16:02 08/05/16 21:19 08/06/16 06:10 Lactic Acid Level 3.1mmol/L (0.4-2.0) 2.3mmol/L (0.4-2.0) Glucose (Fingerstick) 306mg/dL (70-99) 395mg/dL (70-99) Test 08/06/16 07:06 Glucose (Fingerstick) 272mg/dL (70-99) Laboratory Tests Test 08/05/16 11:06 08/05/16 11:45 08/05/16 16:02 08/05/16 21:19 Glucose (Fingerstick) 297mg/dL (70-99) 306mg/dL (70-99) 395mg/dL (70-99) Lactic Acid Level 3.1mmol/L (0.4-2.0) Test 08/06/16 06:10 08/06/16 07:06 Lactic Acid Level 2.3mmol/L (0.4-2.0) Glucose (Fingerstick) 272mg/dL (70-99) Medications Active Scripts Medications Dose Route/Sig Days Date Category Ibuprofen 800 Mg Tablet 800 Mg PO PRN Q6HRS PRN 08/04/16 Reported Hydrocodone-Apap 10-325 (Hydrocodone Bit/Acetaminophen) 1 Each Tablet 1 Tab PO PRN Q4-6HRS PRN 08/04/16 Reported Impression . 1. Dyspnea secondary to mild exacerbation of chronic obstructive pulmonary disease and mild residual pneumonia. Apparently, her chest x-ray at [facility] a week ago had bilateral infiltrates and now radiographically on a chest x-ray we cannot see them. Only very minimal and faint infiltrates seen in the upper lobe. 2. Ongoing tobaccoism. Plan . 1. PO Levaquin. 2. Nebulizer treatments. 3. discharge today 4. Smoking cessation counseling provided. 5. echo normal ok with dc ROBINSON GUTIÉRREZ MD August 06, 2016 10:51
[2016-08-06 11:00] VITALS: BP 120/72
[2016-08-06] MEDS ORDERED: INSULIN ASPART 300 UNITS/3 ML INSULN.PEN SQ ONE (12:15)
[2016-08-06] MEDS ORDERED: METF500T4 PO (13:15)
[2016-08-06] MEDS ORDERED: LEVO500T38 PO (13:15)
[2016-08-06] MEDS ORDERED: METH4TAB2 PO (13:15)
[2016-08-06] MEDS ORDERED: GLYB2.5T2 PO (13:17)
--- NOTE | 2016-08-06 13:20 | PDOC3 ---
Discharge Summary Visit Information Date of Admission: August 04, 2016 Date of Discharge: August 06, 2016 Admitting Diagnosis Comment: Acute respiratory distress, possible COPD exacerbation Pneumonia less likely Obesity Nicotine use for > 20 years Hyperglycemia elevated hgba1c 7,.4 - new dx Final Diagnosis Problems Medical Problems: (1) CAP (community acquired pneumonia) Status: Acute (2) Hyperglycemia Status: Acute (3) Shortness of breath Status: Acute (4) Tachycardia Status: Acute Brief Hospital Course Allergies Allergies Coded Allergies Type Severity Reaction Last Updated Verified Penicillins Allergy Severe anaphylaxis 08/04/16 Yes Vital Signs Vital Signs Date Time Temp Pulse Resp B/P Pulse Ox O2 Delivery O2 Flow Rate FiO2 08/06/16 13:08 Room Air 08/06/16 11:00 98.1 102 22 120/72 98 98.1 Lab Results Laboratory Tests Test 08/04/16 17:10 08/04/16 21:50 08/05/16 04:50 08/05/16 11:06 Lactic Acid Level 5.0mmol/L (0.4-2.0) 4.5mmol/L (0.4-2.0) 3.9mmol/L (0.4-2.0) White Blood Count 11.4x10^3/uL (4.0-11.0) Red Blood Count 4.32x10^6/uL (3.50-5.40) Hemoglobin 12.1g/dL (12.0-15.5) Hematocrit 36.9% (36.0-47.0) Mean Corpuscular Volume 85fL (79-100) Mean Corpuscular Hemoglobin 28pg (25-35) Mean Corpuscular Hemoglobin Concent 33g/dL (31-37) Red Cell Distribution Width 14.0% (11.5-14.5) Platelet Count 177x10^3/uL (140-400) Neutrophils (%) (Auto) 80% (31-73) Lymphocytes (%) (Auto) 15% (24-48) Monocytes (%) (Auto) 5% (0-9) Eosinophils (%) (Auto) 0% (0-3) Basophils (%) (Auto) 0% (0-3) Neutrophils # (Auto) 9.1x10^3uL (1.8-7.7) Lymphocytes # (Auto) 1.6x10^3/uL (1.0-4.8) Monocytes # (Auto) 0.6x10^3/uL (0.0-1.1) Eosinophils # (Auto) 0.0x10^3/uL (0.0-0.7) Basophils # (Auto) 0.1x10^3/uL (0.0-0.2) Sodium Level 133mmol/L (136-145) Potassium Level 3.9mmol/L (3.5-5.1) Chloride Level 100mmol/L (98-107) Carbon Dioxide Level 21mmol/L (21-32) Anion Gap 12 (6-14) Blood Urea Nitrogen 8mg/dL (7-20) Creatinine 0.8mg/dL (0.6-1.0) Estimated GFR (Cockcroft-Gault) 79.4 Glucose Level 298mg/dL (70-99) Hemoglobin A1c 7.4% (4.8-5.6) Calcium Level 9.0mg/dL (8.5-10.1) Glucose (Fingerstick) 297mg/dL (70-99) Test 08/05/16 11:45 08/05/16 16:02 08/05/16 21:19 08/06/16 06:10 Lactic Acid Level 3.1mmol/L (0.4-2.0) 2.3mmol/L (0.4-2.0) Glucose (Fingerstick) 306mg/dL (70-99) 395mg/dL (70-99) Test 08/06/16 07:06 08/06/16 11:57 Glucose (Fingerstick) 272mg/dL (70-99) 380mg/dL (70-99) Laboratory Tests Test 08/05/16 16:02 08/05/16 21:19 08/06/16 06:10 08/06/16 07:06 Glucose (Fingerstick) 306mg/dL (70-99) 395mg/dL (70-99) 272mg/dL (70-99) Lactic Acid Level 2.3mmol/L (0.4-2.0) Test 08/06/16 11:57 Glucose (Fingerstick) 380mg/dL (70-99) Brief Hospital Course Ms. Jeffries is a 41 old [obese female, ongoing tobaccoism, recent er visit at [facility], dcd on Zapck, admitted here for "pna". CXR ok, CT maybe haziness , wheezy, Stayed 2 MN, co managed with pulmo. NOw better . Dc home on PO levaquin, nebs she has at home oTC cough med and medrol dose pack, Cleared from pulmo PT seen and examined COunselled on her smoking DispO; H time 31 mins > 50% counselling Discharge Information Condition at Discharge: Improved, Stable Disposition/Orders: D/C to Home Scheduled PRN Hydrocodone Bit/Acetaminophen (Hydrocodone-Apap 10-325 ) 1 TAB PO PRN Q4- 6HRS PRN PRN PAIN (Reported) Ibuprofen (Ibuprofen) 800 MG PO PRN Q6HRS PRN PRN INFLAMMATION (Reported) SAMARA RONQUILLO MD August 06, 2016 13:20
[2016-08-06] MEDS ORDERED: INSULIN REGULAR 100 UNIT/ML 10ML VIAL. IV ONE (13:30)
== END 2016-08-06 17:14 | disposition home or self-care (01) | DRG 190 ==
LOC: ER 08:59 → 5 SOUTH 13:30
PROVIDERS: ADMIT Internal Medicine; ATTEND Internal Medicine
DX: J44.0 Chronic obstructive pulmonary disease with (acute) lower respiratory infection (principal); J18.9 Pneumonia, unspecified organism; E87.2 Acidosis; R65.10 Systemic inflammatory response syndrome (SIRS) of non-infectious origin without acute organ dysfunction; J44.1 Chronic obstructive pulmonary disease with (acute) exacerbation; E66.9 Obesity, unspecified; F17.200 Nicotine dependence, unspecified, uncomplicated; M54.30 Sciatica, unspecified side; F41.9 Anxiety disorder, unspecified; Z82.3 Family history of stroke; Z82.49 Family history of ischemic heart disease and other diseases of the circulatory system; Z87.01 Personal history of pneumonia (recurrent); Z88.0 Allergy status to penicillin; Z98.51 Tubal ligation status
CPT/HCPCS: 36415; 71010; 71275; 80048; 81001; 81025; 82553; 82947; 83036; 83605; 83735; 83880; 84443; 84484; 85027; 85379; 85610; 87040; 90732; 93005; 93306; 94250; 94640; 94760; 96361; 96374; 99406; G0481; J1100; J1815; J1956; J2270; J2920; J7030; J7620; Q9967; 99285-25

== ENCOUNTER 2021-06-04 22:17 | Inpatient (IN) | payer OTHER ==
[~2021-06-04] VITALS: Ht 160 cm; Wt 80.3 kg
[~2021-06-04 22:17] MED LIST: GLYB2.5T2 PO; HYDR-2769 PO; IBUP-1060 PO; LEVO500T59 PO; METF500T16 PO; METH4TAB2 PO
[2021-06-04] MEDS ORDERED: IV NORMAL SALINE 1000ML BAG 1,000 ML IV ONE (23:30)
[2021-06-04 23:37] LABS: BARBITURATES NEG (NEG); BENZODIAZEPINES NEG (NEG); CANNABINOIDS NEG (NEG); COCAINE NEG (NEG); METHADONE NEG (NEG); OPIATES NEG (NEG); PHENCYCLIDINE NEG (NEG)
[2021-06-04 23:38] LABS: AMPHETAMINE/METHAMPHETAMINE NEG (NEG)
[2021-06-04 23:40] LABS: U PREG PATIENT NEGATIVE (NEG)
[2021-06-04] MEDS ORDERED: LIDOCAINE 2% TOPICAL JELLY 5GM TUBE. TP ONE (23:45)
[2021-06-04] MEDS ORDERED: NYSTATIN 100,000 UNIT/GM TOPICAL CREAM 15GM TUBE. TP ONE (23:45)
--- NOTE | 2021-06-04 23:48 | RAD ---
Exam: CT abdomen/pelvis without intravenous contrast Indication: Right flank pain Comparison: None Technique: Helical CT imaging performed of the abdomen and pelvis without the use of intravenous cont rast. Sagittal and coronal reformats were obtained. One or more of the following individualized dose reduction techniques were utilized for this examinat ion: 1. Automated exposure control 2. Adjustment of the mA and/or kV according to patient size 3. Use of iterative reconstruction technique. Findings: Inherently limited evaluation without intravenous contrast. Lower chest: Lung bases are clear. Heart is normal in size. Liver: The liver is mildly enlarged measuring 19.9 cm craniocaudally. There is moderate hepatic steat osis, limiting evaluation of the liver. There is a vague 9 mm relatively hyperdense nodule in the rig ht hepatic lobe, possibly a hemangioma (image 43, series 2). Relative hyperattenuation along the falc iform ligament may be focal fatty sparing. Gallbladder/Biliary Tree: Normal. Pancreas: Normal. Spleen: Normal. Adrenal Glands: Normal. Kidneys/Ureters/Bladder: There is right nephrolithiasis with a 3 mm nonobstructing calculus. No hydro nephrosis. Left kidney, ureters, and bladder are normal. Reproductive Organs: Uterus is anteverted. No adnexal mass. Stomach, small bowel, and colon: The stomach, small bowel, appendix, and colon are normal. Vasculature: No aortic aneurysm. Minimal calcifications in the distal aorta. Lymph Nodes: No lymphadenopathy. Peritoneum and retroperitoneum: No free fluid or free air. Bones: No acute osseous abnormality. Miscellaneous: None Impression: 1. Right nephrolithiasis. No hydronephrosis. 2. 2. No mild hepatomegaly and hepatic steatosis. 3. Vague 9 mm hyperdense nodule in the right hepatic lobe is indeterminate but possibly a hemangioma . Evaluation for liver lesions is difficult due to hepatic steatosis. Nonemergent ultrasound could be obtained to further evaluate. Electronically signed by: Tosha Abdi MD (06/04/2021 11:45 PM) [facility]
[2021-06-05] LABS: BASO % 0 % (0-3); EOS # 0.1 x10^3/uL (0.0-0.7); EOS % 2 % (0-3); HEMATOCRIT 42.3 % (36.0-47.0); HEMOGLOBIN 13.8 g/dL (12.0-15.5); LYMPH # 2.2 x10^3/uL (1.0-4.8); LYMPH % 24 % (24-48); MEAN CORPUSCULAR HEMOGLOBIN 28 pg (25-35); MEAN CORPUSCULAR HGB CONC 33 g/dL (31-37); MEAN CORPUSCULAR VOLUME 86 fL (79-100); MONO # 0.6 x10^3/uL (0.0-1.1); MONO % 7 % (0-9); NEUT # 6.2 x10^3/uL (1.8-7.7); NEUT % 68 % (31-73); PLATELET COUNT 214 x10^3/uL (140-400); RED BLOOD COUNT 4.93 x10^6/uL (3.50-5.40); RED CELL DISTRIBUTION WIDTH 14.8 % (11.5-14.5); WHITE BLOOD COUNT 9.1 x10^3/uL (4.0-11.0)
[2021-06-05 00:03] LABS: BILIRUBIN,URINE NEGATIVE (NEG); CLARITY,URINE HAZY; COLOR,URINE YELLOW; NITRITE,URINE NEGATIVE (NEG); PROTEIN,URINE NEGATIVE (NEG-TRACE); UROBILINOGEN,URINE 0.2 mg/dL (0.2 mg/dL)
[2021-06-05 00:04] LABS: BACTERIA,URINE FEW /HPF (0-FEW); RBC,URINE TNTC /HPF (0-2)
[2021-06-05 00:21] LABS: ALBUMIN 2.9 g/dL (3.4-5.0); ALBUMIN/GLOBULIN RATIO 0.6 (1.0-1.7); CALCIUM 8.1 mg/dL (8.5-10.1); CREATININE 0.9 mg/dL (0.6-1.0); GFR 67.7; POTASSIUM 4.6 mmol/L (3.5-5.1); TOTAL BILIRUBIN 0.4 mg/dL (0.2-1.0); TOTAL PROTEIN 7.5 g/dL (6.4-8.2)
[2021-06-05] MEDS ORDERED: IV NORMAL SALINE 1000ML BAG 1,000 ML IV ONE ×2 (01:30→02:00)
--- NOTE | 2021-06-05 01:36 | PHYS DOC ---
Past Medical History Past Medical History: Diabetes-Type II, Pneumonia Past Surgical History: Tubal ligation Smoking Status: Current Every Day Smoker Alcohol Use: None Drug Use: None General Adult EDM: Chief Complaint: VAGINAL PROBLEM HPI: HPI: Patient is a 46 year old female with history of diabetes type 2 who presents the ED today complaining of vaginal itching, irritation, pain during sex, s ymptoms have been going on for a while, she is also complaining of dysuria. She states she thinks she has a UTI but she is not sure. Patient denies any abdominal pain, nausea, vomiting, concerns for STDs. She states she does not take her diabetes medicines because she does not want to PCP Dr. Livingston Review of Systems: Review of Systems: Constitutional: Denies fever or chills. [] Eyes: Denies change in visual acuity. [] HENT: Denies nasal congestion or sore throat. [] Respiratory: Denies cough or shortness of breath. [] Cardiovascular: Denies chest pain or edema. [] GI: Denies abdominal pain, nausea, vomiting, bloody stools or diarrhea. [] : Reports dysuria, vaginal itching, irritation Musculoskeletal: Denies back pain or joint pain. [] Integument: Denies rash. [] Neurologic: Denies headache, focal weakness or sensory changes. [] [] Psychiatric: Denies depression or anxiety. [] Heart Score: C/O Chest Pain: N/A Risk Factors: Risk Factors: DM, Current or recent (<one month) smoker, HTN, HLP, family history of CAD, obesity. Risk Scores: Score 0 - 3: 2.5% MACE over next 6 weeks - Discharge Home Score 4 - 6: 20.3% MACE over next 6 weeks - Admit for Clinical Observation Score 7 - 10: 72.7% MACE over next 6 weeks - Early Invasive Strategies Current Medications: Current Medications Medications (Trade) Dose Ordered Sig/Annabel Start Time Stop Time Status Last Admin Dose Admin Lidocaine HCl (Xylocaine 2% Topical 5gm Tube) 1 dontae 1X ONCE 06/04/21 23:45 06/04/21 23:46 DC 06/05/21 00:24 1 DONTAE Nystatin (Mycostatin) 1 dontae 1X ONCE 06/04/21 23:45 06/04/21 23:46 DC 06/04/21 23:49 1 DONTAE Sodium Chloride 1,000 ml @ 1,000 mls/hr 1X ONCE 06/05/21 01:30 06/05/21 02:29 Allergies: Allergies: Allergies Coded Allergies Type Severity Reaction Last Updated Verified Penicillins Allergy Severe anaphylaxis 08/04/16 Yes Physical Exam: PE: Constitutional: Well developed, well nourished, no acute distress, non-toxic appearance. [] HENT: Normocephalic, atraumatic, bilateral external ears normal, oropharynx moist, no oral exudates, nose normal. [] Eyes: PERRLA, EOMI, conjunctiva normal, no discharge. [] Neck: Normal range of motion, no tenderness, supple, no stridor. [] Cardiovascular:Heart rate regular rhythm, no murmur [] Lungs & Thorax: Bilateral breath sounds clear to auscultation [] Abdomen: Bowel sounds normal, soft, no tenderness, no masses, no pulsatile masses. [] Pelvic exam external pelvic is excoriated, red, yeasty appearing, swollen. Full pelvic exam could not be performed due to patient's discomfort Skin: Warm, dry, no erythema, no rash. [] Back: No tenderness, no CVA tenderness. [] Extremities: No tenderness, no cyanosis, no clubbing, ROM intact, no edema. [] Neurologic: Alert and oriented X 3, normal motor function, normal sensory function, no focal deficits noted. [] Psychologic: Affect normal, judgement normal, mood normal. [] Current Patient Data: Labs: Laboratory Tests Test 06/04/21 22:38 06/04/21 23:47 Urine Collection Type Unknown Urine Color Yellow Urine Clarity Hazy Urine pH 7.0 (<5.0-8.0) Urine Specific [place] 1.010 (1.000-1.030) Urine Protein Negative mg/dL (NEG-TRACE) Urine Glucose (UA) 500 mg/dL (NEG) Urine Ketones (Stick) Negative mg/dL (NEG) Urine Blood Large (NEG) Urine Nitrite Negative (NEG) Urine Bilirubin Negative (NEG) Urine Urobilinogen Dipstick 0.2 mg/dL (0.2 mg/dL) Urine Leukocyte Esterase Trace (NEG) Urine RBC Tntc /HPF (0-2) Urine WBC 5-10 /HPF (0-4) Urine Squamous Epithelial Cells Few /LPF Urine Bacteria Few /HPF (0-FEW) Urine Test Negative (NEG) Urine Opiates Screen Neg (NEG) Urine Methadone Screen Neg (NEG) Urine Barbiturates Neg (NEG) Urine Phencyclidine Screen Neg (NEG) Urine Amphetamine/Methamphetamine Neg (NEG) Urine Benzodiazepines Screen Neg (NEG) Urine Cocaine Screen Neg (NEG) Urine Cannabinoids Screen Neg (NEG) Urine Ethyl Alcohol Neg (NEG) White Blood Count 9.1 x10^3/uL (4.0-11.0) Red Blood Count 4.93 x10^6/uL (3.50-5.40) Hemoglobin 13.8 g/dL (12.0-15.5) Hematocrit 42.3 % (36.0-47.0) Mean Corpuscular Volume 86 fL (79-100) Mean Corpuscular Hemoglobin 28 pg (25-35) Mean Corpuscular Hemoglobin Concent 33 g/dL (31-37) Red Cell Distribution Width 14.8 % (11.5-14.5) H Platelet Count 214 x10^3/uL (140-400) Neutrophils (%) (Auto) 68 % (31-73) Lymphocytes (%) (Auto) 24 % (24-48) Monocytes (%) (Auto) 7 % (0-9) Eosinophils (%) (Auto) 2 % (0-3) Basophils (%) (Auto) 0 % (0-3) Neutrophils # (Auto) 6.2 x10^3/uL (1.8-7.7) Lymphocytes # (Auto) 2.2 x10^3/uL (1.0-4.8) Monocytes # (Auto) 0.6 x10^3/uL (0.0-1.1) Eosinophils # (Auto) 0.1 x10^3/uL (0.0-0.7) Basophils # (Auto) 0.0 x10^3/uL (0.0-0.2) Sodium Level 127 mmol/L (136-145) L Potassium Level 4.6 mmol/L (3.5-5.1) Chloride Level 94 mmol/L (98-107) L Carbon Dioxide Level 26 mmol/L (21-32) Anion Gap 7 (6-14) Blood Urea Nitrogen 7 mg/dL (7-20) Creatinine 0.9 mg/dL (0.6-1.0) Estimated GFR (Cockcroft-Gault) 67.7 BUN/Creatinine Ratio 8 (6-20) Glucose Level 547 mg/dL (70-99) *H Calcium Level 8.1 mg/dL (8.5-10.1) L Magnesium Level 2.0 mg/dL (1.8-2.4) Total Bilirubin 0.4 mg/dL (0.2-1.0) Aspartate Amino Transferase (AST) 53 U/L (15-37) H Alanine Aminotransferase (ALT) 59 U/L (14-59) Alkaline Phosphatase 259 U/L (46-116) H Total Protein 7.5 g/dL (6.4-8.2) Albumin 2.9 g/dL (3.4-5.0) L Albumin/Globulin Ratio 0.6 (1.0-1.7) L Lipase 182 U/L (73-393) Ethyl Alcohol Level < 10 mg/dL (0-10) Laboratory Tests 06/04/21 23:47 Laboratory Tests 06/04/21 23:47 Microbiology 06/04/21 Wet Prep - Final, Complete Vital Signs: Vital Signs Date Time Temp Pulse Resp B/P (MAP) Pulse Ox O2 Delivery O2 Flow Rate FiO2 06/05/21 00:49 124 20 127/65 (85) 99 Room Air EKG: EKG: [] Radiology/Procedures: Radiology/Procedures: []PROCEDURE: CT ABDOMEN PELVIS WO CONTRAST Exam: CT abdomen/pelvis without intravenous contrast Indication: Right flank pain Comparison: None Technique: Helical CT imaging performed of the abdomen and pelvis without the use of intravenous contrast. Sagittal and coronal reformats were obtained. One or more of the following individualized dose reduction techniques were utilized for this examination: 1. Automated exposure control 2. Adjustment of the mA and/or kV according to patient size 3. Use of iterative reconstruction technique. Findings: Inherently limited evaluation without intravenous contrast. Lower chest: Lung bases are clear. Heart is normal in size. Liver: The liver is mildly enlarged measuring 19.9 cm craniocaudally. There is moderate hepatic steatosis, limiting evaluation of the liver. There is a vague 9 mm relatively hyperdense nodule in the right hepatic lobe, possibly a hem angioma (image 43, series 2). Relative hyperattenuation along the falciform ligament may be focal fatty sparing. Gallbladder/Biliary Tree: Normal. Pancreas: Normal. Spleen: Normal. Adrenal Glands: Normal. Kidneys/Ureters/Bladder: There is right nephrolithiasis with a 3 mm nonobstructing calculus. No hydronephrosis. Left kidney, ureters, and bladder are normal. Reproductive Organs: Uterus is anteverted. No adnexal mass. Stomach, small bowel, and colon: The stomach, small bowel, appendix, and colon are normal. Vasculature: No aortic aneurysm. Minimal calcifications in the distal aorta. Lymph Nodes: No lymphadenopathy. Peritoneum and retroperitoneum: No free fluid or free air. Bones: No acute osseous abnormality. Miscellaneous: None Impression: 1. Right nephrolithiasis. No hydronephrosis. 2. 2. No mild hepatomegaly and hepatic steatosis. 3. Vague 9 mm hyperdense nodule in the right hepatic lobe is indeterminate but possibly a hemangioma. Evaluation for liver lesions is difficult due to hepatic steatosis. Nonemergent ultrasound could be obtained to further evaluate. Electronically signed by: Tosha Abdi MD (06/04/2021 11:45 PM) [facility] DICTATED and SIGNED BY: TOSHA ABDI MD DATE: 06/04/21 [id number] 0 Course & Med Decision Making: Course & Med Decision Making Pertinent Labs and Imaging studies reviewed. (See chart for details) This a 46-year-old female patient presented to the ED today complaining of vaginal itching, irritation, dysuria, symptoms have been going on for 1. CBC with no acute findings, CMP with glucose of 547, anion gap is normal, CO2 is normal. Acetone pending. Patient started on IV fluids. Pelvic exam noted for yeast infection. Wet prep positive for yeast, given fluconazole in the ED and nystatin cream applied to the vaginal area. Urine noted for trace amount of leukocytes though it is contaminated with squamous cells epithelium CT of the abdomen and pelvis noted for right nephrolithiasis. No hydronephrosis.No mild hepatomegaly and hepatic steatosis.Vague 9 mm hyperdense nodule in the right hepatic lobe is indeterminate but possibly a hemangioma. Evaluation for liver lesions is difficult due to hepatic steatosis. Nonemergent ultrasound could be obtained to further evaluate. Patient will be admitted to the hospital Drag Disclaimer: Dragtony Disclaimer: This electronic medical record was generated, in whole or in part, using a voice recognition dictation system. Departure Departure Impression: Primary Impression: Hyperglycemia Additional Impression: Vaginal candidiasis Disposition: ADMITTED INPATIENT Condition: STABLE Referrals: NO PCP (PCP) [facility] Jun 05, 2021 01:36
[2021-06-05] MEDS ORDERED: ONDANSETRON PF 4 MG/2 ML VIAL. IVP PRN ×2 (01:45→08:45)
[2021-06-05] MEDS ORDERED: ACETAMINOPHEN 325 MG TABLET. PO PRN ×2 (01:45→08:45)
[2021-06-05] MEDS ORDERED: MORPHINE SULFATE 4 MG/ML INJ. IVP PRN (01:45)
[2021-06-05] MEDS ORDERED: FLUCONAZOLE 100 MG TABLET. PO ONE (02:30)
[2021-06-05 07:35] VITALS: BP 117/72
--- NOTE | 2021-06-05 08:36 | PDOC1 ---
History and Physical Date of Service: DOS: DATE: 06/05/21 TIME: 08:28 Chief Complaint: Chief Complain: Complaints of dysuria and vaginal itching History of Present Illness: HPI: History obtained from chart review: 46 year old female with history of diabetes type 2 who presents the ED today complaining of vaginal itching, irritation, pain during sex, symptoms have been going on for a while, she is also complaining of dysuria. She states she thinks she has a UTI but she is not sure. Patient denies any abdominal pain, nausea, vomiting, concerns for STDs. She states she does not take her diabetes medicines because she does not want to Past Medical/Surgical History: PMH/PSH: Past Medical History: Diabetes-Type II, Pneumonia Past Surgical History: Tubal ligation Allergies: Allergies: Coded Allergies: Penicillins (Verified Allergy, Severe, anaphylaxis, 08/04/16) Family History: Family History: Reviewed and the relevant to findings in the chart Social History: Social History: Smoking Status: Current Every Day Smoker Alcohol Use: None Drug Use: None Current Medications: Current Medications Current Medications Sodium Chloride 1,000 ml @ 1,000 mls/hr 1X ONCE IV Last administered on 06/04/21at 23:48; Start 06/04/21 at 23:30; Stop 06/05/21 at 00:29; Status DC Nystatin (Mycostatin) 1 dontae 1X ONCE TP Last administered on 06/04/21at 23:49; Start 06/04/21 at 23:45; Stop 06/04/21 at 23:46; Status DC Lidocaine HCl (Xylocaine 2% Topical 5gm Tube) 1 dontae 1X ONCE TP Last administered on 06/05/21at 00:24; Start 06/04/21 at 23:45; Stop 06/04/21 at 23:46; Status DC Sodium Chloride 1,000 ml @ 1,000 mls/hr 1X ONCE IV Last administered on 06/05/21at 01:37; Start 06/05/21 at 01:30; Stop 06/05/21 at 02:29; Status DC Ondansetron HCl (Zofran) 4 mg PRN Q8HRS PRN IVP NAUSEA/VOMITING 1ST CHOICE; Start 06/05/21 at 01:45; Stop 06/06/21 at 01:44 Morphine Sulfate (Morphine Sulfate) 4 mg PRN Q2HR PRN IVP SEVERE PAIN 7-10 Last administered on 06/05/21at 02:23; Start 06/05/21 at 01:45; Stop 06/06/21 at 01:44 Acetaminophen (Tylenol) 650 mg PRN Q4HRS PRN PO FEVER > 100.3'F; Start 06/05/21 at 01:45; Stop 06/06/21 at 01:44 Sodium Chloride 1,000 ml @ 125 mls/hr 1X ONCE IV Last administered on 2at 02:07; Start 06/05/21 at 02:00; Stop 06/05/21 at 09:59 Fluconazole (Diflucan) 150 mg 1X ONCE PO Last administered on 06/05/21at 02:08; Start 06/05/21 at 02:30; Stop 06/05/21 at 02:31; Status DC Active Scripts Active Glyburide 2.5 Mg Tablet 1 Tab PO BID Metformin Hcl 500 Mg Tablet 500 Mg PO BIDWMEALS Medrol (Methylprednisolone) 4 Mg Tab.ds.pk 1 Pkg PO UD Levaquin (Levofloxacin) 500 Mg Tablet 1 Tab PO DAILY Reported Ibuprofen 800 Mg Tablet 800 Mg PO PRN Q6HRS PRN Hydrocodone-Apap 10-325 (Hydrocodone Bit/Acetaminophen) 1 Each Tablet 1 Tab PO PRN Q4-6HRS PRN ROS: Review of Systems Review of System REVIEW OF SYSTEMS: GENERAL: Denies weakness SKIN: No bruising, hair changes or rashes. EYES: No blurred, double or loss of vision. NOSE AND THROAT: No history of nosebleeds, hoarseness or sore throat. HEART: No history of palpitations, chest pain or shortness of breath on exertion. LUNGS: Denies cough, hemoptysis, wheezing or shortness of breath. GASTROINTESTINAL: Denies changes in appetite, nausea, vomiting, diarrhea or constipation. GENITOURINARY: No history of frequency, urgency, hesitancy or nocturia. NEUROLOGIC: Denies history of numbness, tingling, or tremor. PSYCHIATRIC: No history of panic, anxiety or depression. ENDOCRINE: No history of heat or cold intolerance, polyuria or polydipsia. EXTREMITIES: Denies joint pain, pain on walking or stiffness. Physical Exam: Vital Signs: Vital Signs Date Time Temp Pulse Resp B/P (MAP) Pulse Ox O2 Delivery O2 Flow Rate FiO2 06/05/21 07:35 98.3 20 117/72 (87) 97 Room Air 98.3 06/05/21 02:39 112 Physcial Exam: General: Well developed, well nourished, no acute distress, well appearing HEENT: Pupils equally round and reactive to light, EOMI, no discharge, normal conjunctiva Neck: Supple, no nuchal rigidity, no JVD, trachea midline, no tenderness Cardiac: RRR, no murmurs, no gallops, no rubs Chest/Lungs: CTAB, no wheeze, no rhonchi, no crackles Abdomen: soft, non-distended, no guarding, no peritoneal signs, non-tender Back: No tenderness Extremities: no edema, pulses intact, non-tender,capillary refill <3 sec bilateral upper and lower extremities, Neuro: Alert and oriented x 4, no focal deficits, normal speech Pelvic exam external pelvic is excoriated, red, swollen. Full pelvic exam could not be performed due to patient's discomfort Labs: Labs: Laboratory Tests Test 06/04/21 22:38 06/04/21 23:47 06/05/21 02:15 06/05/21 03:35 Urine Collection Type Unknown Urine Color Yellow Urine Clarity Hazy Urine pH 7.0 (<5.0-8.0) Urine Specific [place] 1.010 (1.000-1.030) Urine Protein Negative mg/dL (NEG-TRACE) Urine Glucose (UA) 500 mg/dL (NEG) Urine Ketones (Stick) Negative mg/dL (NEG) Urine Blood Large (NEG) Urine Nitrite Negative (NEG) Urine Bilirubin Negative (NEG) Urine Urobilinogen Dipstick 0.2 mg/dL (0.2 mg/dL) Urine Leukocyte Esterase Trace (NEG) Urine RBC Tntc /HPF (0-2) Urine WBC 5-10 /HPF (0-4) Urine Squamous Epithelial Cells Few /LPF Urine Bacteria Few /HPF (0-FEW) Urine Test Negative (NEG) Urine Opiates Screen Neg (NEG) Urine Methadone Screen Neg (NEG) Urine Barbiturates Neg (NEG) Urine Phencyclidine Screen Neg (NEG) Urine Amphetamine/Methamphetamine Neg (NEG) Urine Benzodiazepines Screen Neg (NEG) Urine Cocaine Screen Neg (NEG) Urine Cannabinoids Screen Neg (NEG) Urine Ethyl Alcohol Neg (NEG) White Blood Count 9.1 x10^3/uL (4.0-11.0) Red Blood Count 4.93 x10^6/uL (3.50-5.40) Hemoglobin 13.8 g/dL (12.0-15.5) Hematocrit 42.3 % (36.0-47.0) Mean Corpuscular Volume 86 fL (79-100) Mean Corpuscular Hemoglobin 28 pg (25-35) Mean Corpuscular Hemoglobin Concent 33 g/dL (31-37) Red Cell Distribution Width 14.8 % (11.5-14.5) Platelet Count 214 x10^3/uL (140-400) Neutrophils (%) (Auto) 68 % (31-73) Lymphocytes (%) (Auto) 24 % (24-48) Monocytes (%) (Auto) 7 % (0-9) Eosinophils (%) (Auto) 2 % (0-3) Basophils (%) (Auto) 0 % (0-3) Neutrophils # (Auto) 6.2 x10^3/uL (1.8-7.7) Lymphocytes # (Auto) 2.2 x10^3/uL (1.0-4.8) Monocytes # (Auto) 0.6 x10^3/uL (0.0-1.1) Eosinophils # (Auto) 0.1 x10^3/uL (0.0-0.7) Basophils # (Auto) 0.0 x10^3/uL (0.0-0.2) Sodium Level 127 mmol/L (136-145) Potassium Level 4.6 mmol/L (3.5-5.1) Chloride Level 94 mmol/L (98-107) Carbon Dioxide Level 26 mmol/L (21-32) Anion Gap 7 (6-14) Blood Urea Nitrogen 7 mg/dL (7-20) Creatinine 0.9 mg/dL (0.6-1.0) Estimated GFR (Cockcroft-Gault) 67.7 BUN/Creatinine Ratio 8 (6-20) Glucose Level 547 mg/dL (70-99) Calcium Level 8.1 mg/dL (8.5-10.1) Magnesium Level 2.0 mg/dL (1.8-2.4) Total Bilirubin 0.4 mg/dL (0.2-1.0) Aspartate Amino Transf (AST/SGOT) 53 U/L (15-37) Alanine Aminotransferase (ALT/SGPT) 59 U/L (14-59) Alkaline Phosphatase 259 U/L (46-116) Total Protein 7.5 g/dL (6.4-8.2) Albumin 2.9 g/dL (3.4-5.0) Albumin/Globulin Ratio 0.6 (1.0-1.7) Lipase 182 U/L (73-393) Ethyl Alcohol Level < 10 mg/dL (0-10) Acetone Level Neg (NEG) SARS-CoV-2 Antigen (Rapid) Negative (NEGATIVE) Glucose (Fingerstick) 268 mg/dL (70-99) Test 06/05/21 07:10 Glucose (Fingerstick) 248 mg/dL (70-99) Laboratory Tests Test 06/04/21 22:38 06/04/21 23:47 06/05/21 02:15 06/05/21 03:35 Urine Collection Type Unknown Urine Color Yellow Urine Clarity Hazy Urine pH 7.0 (<5.0-8.0) Urine Specific [place] 1.010 (1.000-1.030) Urine Protein Negative mg/dL (NEG-TRACE) Urine Glucose (UA) 500 mg/dL (NEG) Urine Ketones (Stick) Negative mg/dL (NEG) Urine Blood Large (NEG) Urine Nitrite Negative (NEG) Urine Bilirubin Negative (NEG) Urine Urobilinogen Dipstick 0.2 mg/dL (0.2 mg/dL) Urine Leukocyte Esterase Trace (NEG) Urine RBC Tntc /HPF (0-2) Urine WBC 5-10 /HPF (0-4) Urine Squamous Epithelial Cells Few /LPF Urine Bacteria Few /HPF (0-FEW) Urine Test Negative (NEG) Urine Opiates Screen Neg (NEG) Urine Methadone Screen Neg (NEG) Urine Barbiturates Neg (NEG) Urine Phencyclidine Screen Neg (NEG) Urine Amphetamine/Methamphetamine Neg (NEG) Urine Benzodiazepines Screen Neg (NEG) Urine Cocaine Screen Neg (NEG) Urine Cannabinoids Screen Neg (NEG) Urine Ethyl Alcohol Neg (NEG) White Blood Count 9.1 x10^3/uL (4.0-11.0) Red Blood Count 4.93 x10^6/uL (3.50-5.40) Hemoglobin 13.8 g/dL (12.0-15.5) Hematocrit 42.3 % (36.0-47.0) Mean Corpuscular Volume 86 fL (79-100) Mean Corpuscular Hemoglobin 28 pg (25-35) Mean Corpuscular Hemoglobin Concent 33 g/dL (31-37) Red Cell Distribution Width 14.8 % (11.5-14.5) Platelet Count 214 x10^3/uL (140-400) Neutrophils (%) (Auto) 68 % (31-73) Lymphocytes (%) (Auto) 24 % (24-48) Monocytes (%) (Auto) 7 % (0-9) Eosinophils (%) (Auto) 2 % (0-3) Basophils (%) (Auto) 0 % (0-3) Neutrophils # (Auto) 6.2 x10^3/uL (1.8-7.7) Lymphocytes # (Auto) 2.2 x10^3/uL (1.0-4.8) Monocytes # (Auto) 0.6 x10^3/uL (0.0-1.1) Eosinophils # (Auto) 0.1 x10^3/uL (0.0-0.7) Basophils # (Auto) 0.0 x10^3/uL (0.0-0.2) Sodium Level 127 mmol/L (136-145) Potassium Level 4.6 mmol/L (3.5-5.1) Chloride Level 94 mmol/L (98-107) Carbon Dioxide Level 26 mmol/L (21-32) Anion Gap 7 (6-14) Blood Urea Nitrogen 7 mg/dL (7-20) Creatinine 0.9 mg/dL (0.6-1.0) Estimated GFR (Cockcroft-Gault) 67.7 BUN/Creatinine Ratio 8 (6-20) Glucose Level 547 mg/dL (70-99) Calcium Level 8.1 mg/dL (8.5-10.1) Magnesium Level 2.0 mg/dL (1.8-2.4) Total Bilirubin 0.4 mg/dL (0.2-1.0) Aspartate Amino Transf (AST/SGOT) 53 U/L (15-37) Alanine Aminotransferase (ALT/SGPT) 59 U/L (14-59) Alkaline Phosphatase 259 U/L (46-116) Total Protein 7.5 g/dL (6.4-8.2) Albumin 2.9 g/dL (3.4-5.0) Albumin/Globulin Ratio 0.6 (1.0-1.7) Lipase 182 U/L (73-393) Ethyl Alcohol Level < 10 mg/dL (0-10) Acetone Level Neg (NEG) SARS-CoV-2 Antigen (Rapid) Negative (NEGATIVE) Glucose (Fingerstick) 268 mg/dL (70-99) Test 06/05/21 07:10 Glucose (Fingerstick) 248 mg/dL (70-99) Images: Images PROCEDURE: CT ABDOMEN PELVIS WO CONTRAST Exam: CT abdomen/pelvis without intravenous contrast Indication: Right flank pain Comparison: None Technique: Helical CT imaging performed of the abdomen and pelvis without the use of intravenous contrast. Sagittal and coronal reformats were obtained. One or more of the following individualized dose reduction techniques were utilized for this examination: 1. Automated exposure control 2. Adjustment of the mA and/or kV according to patient size 3. Use of iterative reconstruction technique. Findings: Inherently limited evaluation without intravenous contrast. Lower chest: Lung bases are clear. Heart is normal in size. Liver: The liver is mildly enlarged measuring 19.9 cm craniocaudally. There is moderate hepatic steatosis, limiting evaluation of the liver. There is a vague 9 mm relatively hyperdense nodule in the right hepatic lobe, possibly a hemangioma (image 43, series 2). Relative hyperattenuation along the falciform ligament may be focal fatty sparing. Gallbladder/Biliary Tree: Normal. Pancreas: Normal. Spleen: Normal. Adrenal Glands: Normal. Kidneys/Ureters/Bladder: There is right nephrolithiasis with a 3 mm nonobstructing calculus. No hydronephrosis. Left kidney, ureters, and bladder are normal. Reproductive Organs: Uterus is anteverted. No adnexal mass. Stomach, small bowel, and colon: The stomach, small bowel, appendix, and colon are normal. Vasculature: No aortic aneurysm. Minimal calcifications in the distal aorta. Lymph Nodes: No lymphadenopathy. Peritoneum and retroperitoneum: No free fluid or free air. Bones: No acute osseous abnormality. Miscellaneous: None Impression: 1. Right nephrolithiasis. No hydronephrosis. 2. 2. No mild hepatomegaly and hepatic steatosis. 3. Vague 9 mm hyperdense nodule in the right hepatic lobe is indeterminate but possibly a hemangioma. Evaluation for liver lesions is difficult due to hepatic steatosis. Nonemergent ultrasound could be obtained to further evaluate. Assessment/Plan Assessment/Plan HHS Acute electrolyte derangement due to volume depletionhyponatremia, h ypochloremia Hyperglycemia Diabetes mellitus type 2 uncontrolled Candidal vaginitis Obesity class I Admit to hospitalist service for further management R ISS and Accu-Cheks before meals and at bedtime Resume home Metformin if GI tolerates Continue IV fluids Inpatient glycemic goals between 140-180 Monistat cream for fungal vaginitis Pending hemoglobin A1c Lovenox for DVT prophylaxis ADA/cardiac diet CODE STATUS full Discussed with RN and SW Disposition inpatient management as above DPOA: Justifications for Admission Other Justification ISABEL BAZZI MD Jun 05, 2021 08:36
[2021-06-05] MEDS ORDERED: diphenhydrAMINE 50 MG/ML VIAL IVP PRN (08:45)
[2021-06-05] MEDS ORDERED: ZOLPIDEM 5 MG TABLET. PO PRN (08:45)
[2021-06-05] MEDS ORDERED: PROCHLORPERAZINE 10 MG/2 ML VIAL. IV PRN (08:45)
[2021-06-05] MEDS ORDERED: DEXTROSE 50% 25 GM / 50ML DISP.SYRIN. IV PRN (08:45)
[2021-06-05] MEDS ORDERED: DOCUSATE SODIUM 100 MG CAPSULE. PO PRN (08:45)
[2021-06-05] MEDS ORDERED: diphenhydrAMINE HCL 25 MG CAPSULE PO PRN ×2 (08:45)
[2021-06-05] MEDS ORDERED: SENNOSIDES 8.6 MG TABLET PO PRN (08:45)
[2021-06-05] MEDS ORDERED: LORazepam 0.5 MG TABLET PO PRN (08:45)
[2021-06-05] MEDS ORDERED: MICONAZOLE NITRATE 2% TOPICAL CREAM 30GM TUBE. TP SCH (09:00)
[2021-06-05] MEDS ORDERED: ENOXAPARIN 40 MG/0.4 ML SYRINGE. SQ SCH (09:00)
[2021-06-05 10:59] VITALS: BP 111/71
[2021-06-05] MEDS: INSULIN LISPRO 300 UNITS/3 ML VIAL. SQ SCH ×2 (12:00→17:00)
--- NOTE | 2021-06-05 13:53 | NUR ---
SW following. Discussed with RN, pt from home, room air, ada diet, ad dale, rapid COVID-19 negative. RN advised no SW needs at this time. SW will continue to follow.
[2021-06-05] MEDS ORDERED: metFORMIN 500 MG TABLET PO SCH ×2 (14:30→17:00)
[2021-06-05 14:47] VITALS: BP 129/82
[2021-06-05] MEDS ORDERED: INSULIN LISPRO 300 UNITS/3 ML VIAL. SQ ONE (18:00)
[2021-06-05 19:00] VITALS: BP 129/89
--- NOTE | 2021-06-05 19:43 | NUR ---
Discharge Note: LEX BACA HUSLIA Patient left AMA. IV discontinued and all personal belongings with patient. Pt escorted to ED entrance by RN and security. Addendum: 06/05/21 at 2006 by ALICIA KAISER RN Dr. Neil notified of patient leaving AMA.
[2021-06-06 06:15] LABS: HEMOGLOBIN A1C 14.2 % (4.8-5.6)
[2021-06-06 21:08] LABS: GC PROBE Positive (Negative)
== END 2021-06-05 19:30 | disposition left against medical advice (07) | DRG 758 ==
LOC: ER 22:17 → 5 NORTH 06-05 01:32 → 4 NORTH 06-05 17:23
PROVIDERS: ADMIT Internal Medicine; ATTEND Internal Medicine
DX: B37.3 Candidiasis of vulva and vagina (principal); E87.1 Hypo-osmolality and hyponatremia; E11.65 Type 2 diabetes mellitus with hyperglycemia; E66.9 Obesity, unspecified; E86.9 Volume depletion, unspecified; E87.8 Other disorders of electrolyte and fluid balance, not elsewhere classified; F17.200 Nicotine dependence, unspecified, uncomplicated; N20.0 Calculus of kidney; Z68.31 Body mass index [BMI] 31.0-31.9, adult; Z79.84 Long term (current) use of oral hypoglycemic drugs; Z98.51 Tubal ligation status; Z87.01 Personal history of pneumonia (recurrent); Z88.0 Allergy status to penicillin; Z20.822 Contact with and (suspected) exposure to COVID-19
CPT/HCPCS: 36415; 74176; 80053; 80307; 81001; 81025; 82010; 82962; 83036; 83690; 83735; 85025; 87086; 87147; 87426; 87491; 87591; 96361; 96374; G0480; J1650; J1815; J2270; J7030; Q0111; U0003; 99285-25; G0378